=== PATIENT | male | born 1965 | race Caucasian/White ===

== ENCOUNTER 2018-01-05 10:39 | Emergency (ER) | payer OTHER ==
[~2018-01-05] VITALS: Ht 185.4 cm; Wt 77.1 kg
[~2018-01-05 10:39] MED LIST: IBUPROFEN200 M1 PO; QUETIAPINE FUMA50 MG PO; TYLENOL325 MG PO; VICODIN 5-3001 EACH PO
[2018-01-05] MEDS ORDERED: LAMOTRIGINE100 MG PO (11:07)
[2018-01-05] MEDS ORDERED: ULTRAM50 MG PO (11:07)
[2018-01-05] MEDS ORDERED: NORCO 5-325 TA1 EACH PO (11:26)
== END 2018-01-05 11:37 | disposition home or self-care (01) ==
LOC: ED 10:39
DX: S05.02XA Injury of conjunctiva and corneal abrasion without foreign body, left eye, initial encounter (principal); Z79.899 Other long term (current) drug therapy; F17.200 Nicotine dependence, unspecified, uncomplicated; X58.XXXA Exposure to other specified factors, initial encounter
CPT/HCPCS: 99283

== ENCOUNTER 2018-02-02 12:28 | Emergency (ER) | payer OTHER ==
[~2018-02-02] VITALS: Ht 185.4 cm; Wt 77.1 kg
[~2018-02-02 12:28] MED LIST changes: +LAMOTRIGINE100 MG PO; +NORCO 5-325 TA1 EACH PO; +ULTRAM50 MG PO
[2018-02-02] MEDS ORDERED: LAMICTAL100 MG PO (12:48)
[2018-02-02] MEDS ORDERED: NEURONTIN300 MG PO (13:03)
== END 2018-02-02 13:10 | disposition home or self-care (01) ==
LOC: ED 12:28
DX: M54.5 Low back pain (principal); G89.29 Other chronic pain; F31.9 Bipolar disorder, unspecified; F17.200 Nicotine dependence, unspecified, uncomplicated; Z79.899 Other long term (current) drug therapy
CPT/HCPCS: 99283

== ENCOUNTER 2019-07-04 18:45 | Emergency (ER) | payer OTHER ==
[~2019-07-04] VITALS: Ht 185.4 cm; Wt 77.1 kg
[~2019-07-04 18:45] MED LIST changes: +LAMICTAL100 MG PO; +NEURONTIN300 MG PO
[2019-07-04] MEDS ORDERED: TRAMADOL HCL50 MG PO (20:19)
[2019-07-04] MEDS ORDERED: MEDROL4 M1 PO (20:19)
[2019-07-04] MEDS ORDERED: CYCLOBENZAPRINE10 MG PO (20:19)
== END 2019-07-04 20:34 | disposition home or self-care (01) ==
LOC: ED 18:45
DX: G89.29 Other chronic pain (principal); M54.5 Low back pain; M79.604 Pain in right leg; F17.200 Nicotine dependence, unspecified, uncomplicated
CPT/HCPCS: 99283

== ENCOUNTER 2020-09-17 07:07 | Day surgery (SDC) | payer OTHER ==
[~2020-09-17] VITALS: Ht 182.9 cm; Wt 90.0 kg
[~2020-09-17 07:07] MED LIST changes: +CYCLOBENZAPRINE10 MG PO; +DEPAKOTE250 MG PO; +GABAPENTIN300 MG PO; +GABAPENTIN600 MG PO; +LAMOTRIGINE200 MG PO; +LIPITOR20 MG; +LISINOPRIL10 MG PO; +MEDROL4 M1 PO; +MOBIC15 MG PO; +TRAMADOL HCL50 MG PO; +VIT D-2 PO; +VITAMIN B-2100 MG PO
--- NOTE | 2020-09-17 08:52 | NUR ---
09/17/20 0852 Laura Murray 0889 PATIENT ARRIVES TO PACU UNRESPONSIVE TO PAIN. RESP EVEN AND UNLABORED, MASK AT 6 LITERS.
--- NOTE | 2020-09-17 10:04 | NUR ---
PT ALERT, ORIENTED AND HERE FOR FIRST SCOPE. PT ADMITTED ANXIETY OVER SCOPE- REALLY DID NOT WANT ONE. FOR HIM, NO NEWS IS BEST WITH RECENT EXPERIENCES HE HAS ENCOUNTERED WITH FRIENDS. GAVE ENCOURAGEMENT,DEBRIEFED PT, SAID HE HAS BEEN IN [facility] ALREADY THIS AM. GAVE BLESSING, WILL FOLLOW
--- NOTE | 2020-09-21 08:00 | OR ---
[facility] [place] [facility] [address] [place], [place] [address] Signed DATE OF OPERATION: 09/17/2020 SURGEON: Nicolas Faust MD PREOPERATIVE DIAGNOSIS: Screening. POSTOPERATIVE DIAGNOSES: 1. Cecal mass. 2. 8 mm polyp at 75 cm (snare/tattoo). 3. 5 mm polyp at 62 cm. 4. 6 mm polyp at 58 cm (snare/hot biopsy). 5. 4 mm polyps x2 at 18 cm (rectosigmoid junction/proximal rectum). 6. Flwklro-zg-hhtvklzj internal and external hemorrhoids. 7. Minimal left-sided diverticulosis. PROCEDURES: Colonoscopy, snare polypectomy, hot biopsy, and injection of tattoo. ESTIMATED BLOOD LOSS: Minimal. INDICATIONS: Barby is a 54-year-old gentleman, asked to see me for his initial colonoscopy. He explained that his ex-girlfriend actually of colon cancer. He has no current lower GI complaints. There is no family history of colon cancer or polyps. I had met with Barby in the office and gave him a pamphlet on colonoscopy. He understands the nature of the test along with the risks including, but not limited to gas bloating, crampy abdominal pain, bleeding, perforation requiring surgery, and missed diagnosis. He also understands the need for IV conscious sedation. Given his past medical history and his daily need for pain medications, we did ask an anesthesia provider to help us with increased monitoring sedation with propofol. He had expressed understanding and wished to proceed. PROCEDURE IN DETAIL: Reagan was taken in the endoscopy suite and placed in the left lateral decubitus position. He was given IV sedation with propofol per our nurse event specialist. A digital rectal exam was performed. He does have moderate circumferential external hemorrhoids. He had good sphincter tone. Prostate is a bit indurated, moderately enlarged in the left-sided certainly more prominent than the right. He probably should review that with Electronically Signed By: NICOLAS FAUST MD 09/21/20 0800 PATIENT NAME: BARBY MATTA OPERATIVE REPORT DATE OF : 63 REPORT #: [id number] PHYSICIAN: NICOLAS FAUST MD PCP: NANCIE ROBLES MD REPORT IS CONFIDENTIAL AND NOT TO BE RELEASED WITHOUT AUTHORIZATION [facility] [address] [place], [place] [address] Signed his primary care provider. The adult colonoscope had been introduced and advanced all around into the cecum under direct visualization of the camera. It took minimal abdominal compression in order to move the scope into the cecum itself. His prep was quite excellent. We could easily see his appendiceal orifice and the ileocecal valve. We had taken pictures throughout for photodocumentation. He has a multilobulated cecal mass just to the side of the appendiceal orifice. It was too broad and too extensive or remove safely with our snare. Consequently, we took several biopsies of this mass. More than likely, this will require right colectomy. The scope was then slowly withdrawn and we used our snare to remove the polyp at 75 cm. We took 2 additional biopsies at the base and then placed a tattoo at that location. We took another polyp off at 62 cm and then at 58 cm, we took a biopsy of the base of the polyp with hot biopsy forceps and then removed the rest with our snare and it looks like we got it in our trap. I then back it 18 cm right around the rectosigmoid junction and over the proximal rectum. We took out 2 small polyps with the hot biopsy forceps. We also noticed up in the left colon that he had a few diverticula. They were small in size, few in number, and scattered about. The rectum itself was unremarkable. Upon retroflexion of scope, he has minimal internal hemorrhoid tissue as well. After this, the gas was suctioned out and the colonoscope was removed. Reagan tolerated the procedure quite well. RECOMMENDATIONS: I will see Reagan back in my office in 7 to 14 days to review his results. He might review his prostate exam with his primary care provider. It looks like he is headed for a right colectomy. Nicolas Faust MD ALB/MODL /[id number] cc: MD Nancie Corcoran MD Copies: NICOLAS FAUST MD Electronically Signed By: NICOLAS FAUST MD 09/21/20 0800 PATIENT NAME: BARBY MATTA OPERATIVE REPORT DATE OF : 63 REPORT #: [id number] PHYSICIAN: NICOLAS FAUST MD PCP: NANCIE ROBLES MD REPORT IS CONFIDENTIAL AND NOT TO BE RELEASED WITHOUT AUTHORIZATION [address] [address] Signed ~ Electronically Signed By: NICOLAS FAUST MD 09/21/20 0800 PATIENT NAME: BARBY MATTA OPERATIVE REPORT DATE OF : 63 REPORT #: [id number] PHYSICIAN: NICOLAS FAUST MD PCP: NANCIE ROBLES MD REPORT IS CONFIDENTIAL AND NOT TO BE RELEASED WITHOUT AUTHORIZATION
--- NOTE | 2020-09-21 13:39 | PATH ---
[facility] [address], [place] [address] Signed SPECIMEN(S): A RECTAL POLYP AT 18 CM SPECIMEN(S): B COLON POLYP AT 75 CM SPECIMEN(S): C CECAL POLYP SPECIMEN(S): D COLON POLYP AT 62 CM SPECIMEN(S): E COLON POLYP AT 58 CM SPECIMEN SOURCE: A. RECTAL POLYP AT 18 CM B. COLON POLYP AT 75 CM C. CECAL POLYP D. COLON POLYP AT 62 CM E. COLON POLYP AT 58 CM CLINICAL HISTORY: Screening colonoscopy. Cecal CA. MICROSCOPIC DESCRIPTION: Histologic sections of all submitted blocks are examined by light microscopy. These findings, together with the gross examination, support the pathologic diagnosis. FINAL PATHOLOGIC DIAGNOSIS: A. Rectal polyp at 18 cm, biopsy: - Tubular adenoma (one fragment). B. Colon polyp at 75 cm, biopsy: - Tubular adenoma (one fragment). C. Cecal polyp, biopsy: - Tubular adenoma (three fragments). D. Colon polyp at 62 cm, biopsy: - Tubular adenoma (one fragment). E. Colon polyp at 58 cm, biopsy: - Tubular adenoma (one fragment). JVR:cml:[id number] GROSS DESCRIPTION: Five specimens are received in five containers, labeled "DB." A. The specimen, labeled "DB, 1," and designated on the requisition "ascending polyp," is received in formalin and consists of one carrillo soft tissue fragment with vegetative matter that measures 0.3 cm in greatest dimension. The specimen is entirely submitted in cassette (A1). B. The specimen, labeled "DB, 2," and designated on the requisition "cecum polyp," is received in formalin and consists of one carrillo soft tissue fragment PATIENT NAME: BARBY MATTA PATHOLOGY DATE OF : 63 REPORT #: [id number] PHYSICIAN: CÉSAR RIVERA PCP: LENNY ROBLES MD REPORT IS CONFIDENTIAL AND NOT TO BE RELEASED WITHOUT AUTHORIZATION [facility] [address] [place], [place] [address] Signed that measures 0.7 cm in greatest dimension. The specimen is inked black, bisected, and entirely submitted in cassette (B1). C. The specimen, labeled "DB, 3," and designated on the requisition "descending polyp," is received in formalin and consists of two carrillo soft tissue fragments that measure 0.3 cm in greatest dimension. The specimen is entirely submitted in cassette (C1). D. The specimen, labeled "DB, 4," and designated on the requisition "sigmoid polyps x 2," is received in formalin and consists of four carrillo soft tissue fragments that measure 0.4 cm in greatest dimension. The specimen is entirely submitted in cassette (D1). E. The specimen, labeled "DB, 5," and designated on the requisition "sigmoid polyp," is received in formalin and consists of one carrillo soft tissue fragment that measures 0.4 cm in greatest dimension. The specimen is entirely submitted in cassette (E1). AT (under the direct supervision of a pathologist) The Gross Description was prepared using a voice recognition system. The report was reviewed for accuracy; however, sound-alike word errors, addition and/or deletions may occur. If there is any question about this report, please contact Client Services. PERFORMING LABORATORY: The technical component was performed by [employer], [address] [place] [id number] (Communication Equipment Mechanic: Alicia Rodriguez MD; CLIA# [id number]). Professional interpretation was performed by [facility], [facility], [address] [place] [address], [place] [address] (Communication Equipment Mechanic: Romain Frausto M.D.). Diagnostician: Romain Frausto MD Pathologist Electronically Signed 09/21/2020 Copies: ~ PATIENT NAME: BARBY MATTA PATHOLOGY DATE OF : 63 REPORT #: [id number] PHYSICIAN: CÉSAR PATHOLOGY PCP: LENNY ROBLES MD REPORT IS CONFIDENTIAL AND NOT TO BE RELEASED WITHOUT AUTHORIZATION
== END 2020-09-17 09:25 | disposition home or self-care (01) ==
LOC: DS 07:07 → OPS 07:07 → DS 07:08 → OPS 07:45
PROVIDERS: ATTEND Colon & Rectal Surgery
PROC: 0DBN8ZX Excision of Sigmoid Colon, Via Natural or Artificial Opening Endoscopic, Diagnostic (ICD-10-PCS; 2020-09-17)
PROC: 0DBP8ZX Excision of Rectum, Via Natural or Artificial Opening Endoscopic, Diagnostic (ICD-10-PCS; 2020-09-17)
PROC: 0DBM8ZX Excision of Descending Colon, Via Natural or Artificial Opening Endoscopic, Diagnostic (ICD-10-PCS; 2020-09-17)
PROC: 0DBH8ZX Excision of Cecum, Via Natural or Artificial Opening Endoscopic, Diagnostic (ICD-10-PCS; 2020-09-17)
PROC: 0DBK8ZX Excision of Ascending Colon, Via Natural or Artificial Opening Endoscopic, Diagnostic (ICD-10-PCS; principal; 2020-09-17 08:15)
DX: Z12.11 Encounter for screening for malignant neoplasm of colon (principal); D12.8 Benign neoplasm of rectum; D12.2 Benign neoplasm of ascending colon; D12.0 Benign neoplasm of cecum; D12.4 Benign neoplasm of descending colon; D12.5 Benign neoplasm of sigmoid colon; K64.8 Other hemorrhoids; K64.4 Residual hemorrhoidal skin tags; K57.30 Diverticulosis of large intestine without perforation or abscess without bleeding; N42.89 Other specified disorders of prostate; I10 Essential (primary) hypertension; E78.5 Hyperlipidemia, unspecified; F31.9 Bipolar disorder, unspecified; R73.01 Impaired fasting glucose; F17.210 Nicotine dependence, cigarettes, uncomplicated; Z79.1 Long term (current) use of non-steroidal anti-inflammatories (NSAID); Z79.899 Other long term (current) drug therapy
CPT/HCPCS: J2704; J7121

== ENCOUNTER 2020-11-04 14:25 | Inpatient (IN) | payer OTHER ==
[~2020-11-04] VITALS: Ht 182.9 cm; Wt 92.7 kg
[~2020-11-04 14:25] MED LIST changes: -LIPITOR20 MG; +LIPITOR20 MG PO
[2020-11-10] MEDS ORDERED: FLONASE ALLERG9.9 ML NAS (09:24)
[2020-11-10] MEDS ORDERED: HYDROCHLOROTHIA25 MG PO (09:30)
--- NOTE | 2020-11-10 15:26 | NUR ---
11/10/20 Lizeth6 Evelin Steven PATIENT IS ATTEMPTING TO COUGH. MIDLINE ABDOMINAL INCISION IS APPLIED PRESSURE BY ME. PATIENT TOLERATES THAT WELL.
--- NOTE | 2020-11-10 16:35 | NUR ---
New admit to the floor. Patient arrived to unit alert and oriented x4. Abdomial incision covered with surgical dressing. Patient reports tolerable pain level. Vital signs are stable. Water and jello provided to patient. IV fluids infusing without difficulty. Call light within reach. No needs at this time.
--- NOTE | 2020-11-10 17:01 | NUR ---
P[place] Santiago 5/325mg po and gabbapentin 600mg po admin for reports of 6/10 abd pain.
--- NOTE | 2020-11-10 17:08 | NUR ---
Dilaudid 1mg ivp admin for reports of 9/10 abd pain.
--- NOTE | 2020-11-10 17:10 | NUR ---
Patient reports 9/10 uncontrolled abd pain. Recent admin of dilaudid. Pt's vs are stable, afebrile. Abdominal incision remains unchanged; CDI. IV infusing without difficulty. Patient has no needs. Personal supplies and call light within reach.
--- NOTE | 2020-11-10 18:17 | NUR ---
THIS RN IN PTS ROOM TO CHECK PT FOR POST OPP CHECK. PT STATES THAT PAIN IS 3/10 AND IS TOLERABLE. PTS INSICION IS CLEAN/DRY/INTACT WITH LIMITED SHADOWING AROUND THE BELLY BUTTON. PT ALERT AND ORIENTED.
--- NOTE | 2020-11-10 19:00 | NUR ---
REPORT RECEIVED FROM XAVIER PATRICIA. PT RESTING IN BED, ALERT AND ORIENTED, IVF INFUSING WNL. PT REPORTS PAIN 4/10 AT THIS TIME, MADE PLAN WITH PT FOR PRN MEDICATIONS WHEN AVAILABLE. PT DUE TO VOID, EDUCATED PROBATION AND PATROL AGENT LIGHT USAGE. SCDS IN PLACE, CALL LIGHT IN REACH, WILL CONT TO MONITOR
--- NOTE | 2020-11-10 19:06 | NUR ---
THIS RN IN PTS ROOM TO DO POST OPP CHECK. PT STATES THAT PAIN IS 3.5/10. PT TOLERATING PAIN OKAY AND DENIES NEED FOR PAIN MEDS. PT ALERT AND ORIENTED.
--- NOTE | 2020-11-10 19:11 | NUR ---
THIS RN IN PTS ROOM TO DO POST OPP CHECK. PT APPEARS TO BE RESTING COMFORTABLY AT THIS TIME WITH RESPIRATIONS NOTED AND PT IS ON CPOX.
--- NOTE | 2020-11-10 20:11 | NUR ---
Scheduled medications administered. Pt resting in bed, alert and oriented. Pt states not all medications he takes at home are being given here yet, this RN discussed med list with patient. Pt up to BR to void, 300 ml out, states pain with urination. Pt requests to walk in hallway, 1 lap complete, steady gait, pt bracing abdomen. IVF infusing WNL, VSS, CPOX in place SPO2 @ 94% on RA. SCDs in place. Once back in bed, pt requests PRN pain medication for sudden 8/10 abdominal pain, see JAN. Midline incision covered w gauze, C/D/I. Water refreshed, warm blanket given, ice pack provided. Call light in reach.
--- NOTE | 2020-11-10 20:56 | NUR ---
REASSESSED PT PAIN, STATES IS NOW 3/10 AND IS TOLERABLE AND COMFORTABLE. PT RESTING IN BED, ICE PACK OVER ABDOMEN, PT DEMONSTRATING KNOWLEDGE ABOUT BRACING WHEN COUGHING, DEEP BREATHS ETC. STATES NO OTHER NEEDS AT THIS TIME. CALL LIGHT IN REACH, WILL CONT TO MONITOR
--- NOTE | 2020-11-10 21:58 | NUR ---
CALL LIGHT ANSWERED, PT REQUESTS WATER REFILLED, CELL PHONE PLUGGED IN, ASKS AGAIN ABOUT HOME MEDICATIONS, DISCUSSED PLAN OF CARE AND MEDS WITH PATIENT. NO OTHER REQUESTS AT THIS TIME, CALL LIGHT IN REACH.
--- NOTE | 2020-11-10 22:15 | NUR ---
ANSWERED CALL LIGHT. 1P STANDBY TO THE BATHROOM. REPOSITIONED PT IN BED.
--- NOTE | 2020-11-11 | NUR ---
Rounded on patient, resting in bed with eyes closed. SPO2 91% on room air. IVF infusing WNL. Call light in reach, no other needs at this time.
--- NOTE | 2020-11-11 00:57 | NUR ---
Call light answered, pt requests to use bathroom and PRN medications, administered. IVF infusing WNL. Water refreshed. Call light in reach, no other needs at this time.
--- NOTE | 2020-11-11 02:20 | NUR ---
IN ROOM FOR VITALS, ASSESSMENT. BELEM RUSSELL IN ROOM TO ASSIST. PT AMBULATED TO BR, SPLINTING ABDOMEN WITH COUGHING AND MOVEMENT. STEADY GAIT. IVF INFUSING WNL. ON ROOM AIR. MIDLINE INCISION COVERED WITH GAUZE, C/D/I. ICE PACK REFRESHED. CALL LIGHT IN REACH, NO OTHER REQUESTS AT THIS TIME
--- NOTE | 2020-11-11 02:22 | NUR ---
IN ROOM TO ASSIST PRIMARY RN WITH VS. pt 1PA TO GET OUT OF BED, C/O BACK AND ABDOMINAL PAIN WITH MOVEMENT IN AND OUT OF BED, GUARDED. pt AMBULATED TO RESTROOM AND BACK TO BED. SCDS ON. PRIMARY RN IN ROOM.
--- NOTE | 2020-11-11 04:43 | NUR ---
ANSWERED CALL LIGHT. 1P STANDBY TO THE BATHROOM. SUDDEN PAIN ON ABDOMEN 06/28. VERIFIED WITH PRIMARY RN TO ADMINISTER PRN MEDS. REPOSITIONED PT IN BED. ICE PACK GIVEN. EDUCATED PT ON HOW LONG THE MED WILL HAVE EFFECT. PT VERBALIZED UNDERSTANDING.
--- NOTE | 2020-11-11 05:25 | NUR ---
VITALS AND I/O'S COMPLETE, PT ALERT AND ORIENTED, AWAKE IN BED, STATES "HAVING PAIN" BUT DECLINES PAIN MEDICATION AT THIS TIME, STATES WILL USE CALL LIGHT WHEN WANTING MEDS. IVF INFUSING WNL, CALL LIGHT IN REACH, LAB IN ROOM.
--- NOTE | 2020-11-11 06:37 | NUR ---
CALL LIGHT ANSWERED, PT REQUESTS PRN MEDICATION FOR 10/10 PAIN. IV DILAUDID ADMINISTERED. PT TEARFUL AND SHAKING, QUICKLY RESOLVES WITH VERBAL REASSURANCE AND SENIOR ORACLE PL SQL DEVELOPER. IVF INFUSING WNL, A+0, VSS. ROOM TIDIED, NO OTHER NEEDS AT THIS TIME.
--- NOTE | 2020-11-11 06:57 | OR ---
[facility] [address], [place] [address] Signed DATE OF OPERATION: 11/10/2020 SURGEON: Nicolas Faust MD PREOPERATIVE DIAGNOSIS: Sessile cecal mass. POSTOPERATIVE DIAGNOSIS: Sessile circular cecal mass (2.5-3.0 cm). PROCEDURE: Right colectomy with stapled tzoz-pi-tusy anastomosis. ESTIMATED BLOOD LOSS: Minimal. INDICATIONS: Reagan is a 55-year-old gentleman asked to see me for his colonoscopy. We had taken out several adenomatous polyps throughout the colon and rectum. He also has minimal internal and external hemorrhoids. He is known to have left-sided diverticulosis. We could see a sessile serpiginous lesion in the cecum. It was simply too large to remove with the endoscope without perforating the colon. We took several cold biopsies of that lesion and they came back adenomatous as well. Reagan had came back to the office and I reviewed all this with him in detail including the surgical photos and the pathology report. I gave him a brochure on colorectal polyps and cancer. I explained to him the location of this lesion and the requirement for a standard right colectomy. In the end, this may remain a benign lesion, but it could end up having cancer. In that regard, I explained to Reagan we had to do a formal right colectomy and treat it like cancer. He understands the nature of that surgery along with its expected intraop and postop course. We did review the risks including, but not limited to bleeding, infection, scarring, change in contour of the skin, damage to bowel, anastomotic leak, incisional hernias and other unforeseen comorbidities. He had expressed understanding and wished to proceed. DESCRIPTION OF PROCEDURE: I met with Reagan in the preop area and answered his questions. After that, we took Reagan into the operating room and placed him in supine position under general endotracheal tube anesthesia. He was given preoperative antibiotics along with subcutaneous heparin. SCDs were utilized. He was then prepped and draped in the usual sterile fashion. We noticed that he had a broad fascial defect at the umbilicus. We Electronically Signed By: NICOLAS FAUST MD 11/11/20 0657 PATIENT NAME: BARBY MATTA OPERATIVE REPORT DATE OF : 63 REPORT #: [id number] PHYSICIAN: NICOLAS FAUST MD PCP: NANCIE HOSKINS MD REPORT IS CONFIDENTIAL AND NOT TO BE RELEASED WITHOUT AUTHORIZATION [facility] [address] [place] [id number] Signed utilized a standard periumbilical midline incision and carried that in the abdomen bluntly with the help of the cautery. Initially, I could not feel the lesion in the cecum. We placed the Bookwalter retractor and then elevated the right colon along the white line of Toldt and around the hepatic flexure over to the head of the pancreas. This allowed the entire right colon to come up and out of the abdomen along with the terminal ileum. We could palpate the lesion in the cecum. It felt to be 2.5-3 cm in diameter. We then divided the transverse colon with the linear stapler along with the terminal ileum. The mesentery was taken down between Pean clamps and 0 Vicryl ties in standard fashion. The entire specimen had been passed off the field. We had our circulating nurse open that on the back table as usual. One could easily see this lesion in the base of the cecum. We had taken pictures for photodocumentation. It is quite clear this would never be amenable to endoscopic resection. After this, we brought the small bowel in the proximal transverse colon together in a [id number] fashion with interrupted 3-0 silk sutures. We opened the corners of the bowel and inserted the 75 mm linear stapler for the anastomosis. We checked the staple line and had good hemostasis. We then divided the end of the small bowel and the colon with the help of TA60 stapler. We then oversewed the anterior staple line with several interrupted silk Lembert sutures. This gave a widely palpably patent anastomosis. We then closed the mesenteric rent with a running 0 Vicryl suture. The wound was irrigated and suctioned out until clear. The bowel was returned to its position and all counts were correct. We then closed the midline fascia with interrupted sagtli-vh-cbndy #1 PDS suture. Local anesthetic was injected into his abdominal wall. We irrigated the wound until clear. We closed the dermis with interrupted 3-0 Vicryl subcuticular stitches. The skin was reapproximated with mile. After this, our nurse wood products manufacturer placed a TAP block with ultrasound guidance. Dry gauze and tape were then applied to the incision. His Eddy catheter was removed without difficulty. Reagan was awakened from his anesthesia, extubated in the OR, and taken to recovery room in stable condition. Nicolas Faust MD ALB/MODL /[id number] cc: Nancie Hoskins MD Electronically Signed By: NICOLAS FAUST MD 11/11/20 0657 PATIENT NAME: BARBY MATTA OPERATIVE REPORT DATE OF : 63 REPORT #: [id number] PHYSICIAN: NICOLAS FAUST MD PCP: NANCIE HOSKINS MD REPORT IS CONFIDENTIAL AND NOT TO BE RELEASED WITHOUT AUTHORIZATION [address] [address] Signed Copies: ~ Electronically Signed By: NICOLAS FAUST MD 11/11/20 0657 PATIENT NAME: BARBY MATTA OPERATIVE REPORT DATE OF : 63 REPORT #: [id number] PHYSICIAN: NICOLAS FAUST MD PCP: NANCIE HOSKINS MD REPORT IS CONFIDENTIAL AND NOT TO BE RELEASED WITHOUT AUTHORIZATION
--- NOTE | 2020-11-11 07:19 | NUR ---
REPORT RECIEVED FROM BELEM DUMONT. PT RESTING IN BED. PT REPORTS 5/10 PAIN STATING "I'M A CHEERFUL SUMAN WHEN THE PAIN IS IN CONTROL." PT DENIES NEED FOR ADDITIONAL PAIN MEDICATION AT THIS TIME. MIDLINE DRESSIG INTACT WITH 3CM X 3CM SHADOWING NOTED NEAR DISTAL END OF DRESSING, JULIA STATES THIS SHADOWING IS OLD AND HAS NOT CHANGED SINCE LAST NIGHT. ICE PACK IN PLACE. PT DENIES NAUSEA AND REQUESTS ADDITIONAL FOOD OTHER THAN CLEAR LIQUIDS. UPDATED ON PT CONDITION AND COMES TO ROOM FOR ROUNDS. NEW ORDERS PLACED. PT DENIES ADDITIONAL REQUESTS OR COMPLAINTS AT THIS TIME. CALL LIGHT WITHIN REACH.
--- NOTE | 2020-11-11 08:30 | NUR ---
To room for med pass. Pt reports 10/10 pain with "shaking", visible in his hands. Pt given PRN norco tabs as ordered. Pt able to take med without difficulty. Pt up to the chair. Pt denies nausea and dizziness with movement. Pt in chair, table and call light within reach.
--- NOTE | 2020-11-11 08:33 | NUR ---
MORNING ASSESSMENT AND MEDICATION DUE. PT UP TO CHAIR. PT REPORTS 6/10 SHARP PAIN AT SURGICAL SITE AND UP TO RIGHT SHOULDER. PT ENCORUAGED TO AMBULATE. PT DECLINES AT THIS TIME. DRESSING REMOVED BY MD, SEAN REMAIN IN PLACE ON MID LINE INCISION, EDGES WELL APROXIMATED, NO DRAINAGE NOTED. NEW GOWN PROVIDED. BOWEL TONES ACTIVE. PT DENIES NAUSEA. PT REMAINS UP TO CHAIR AND STATES HE PLANS TO WALK "LATER" AND SHOWER THIS AFTERNOON. PT ASKS ABOUT A GROWTH ON THE BACK OF RIGHT ARM. PT ENCOURAGED TO FOLLOW UP WITH HIS PRIMARY CARE DOCTOR. MEDICATION GIVEN. NO ADDITIONAL REQUESTS OR COMPLAINTS AT THIS TIME. CALL LIGHT WITHIN REACH. FRESH ICE PACK PROVIDED.
--- NOTE | 2020-11-11 10:01 | NUR ---
SPOKE WITH PATIENT IN ROOM. HE IS UP IN CHAIR WITH CELE CARDONA BREAKFAST TRAAdam. PATIENT LIVES IN HOME WITH HIS DAD. HE IS DISABLED. DRIVES. HE HAS A WALKER TO USE AT HOME BUT DOESN'T USE DAILY. DOES NOT HAVE STAIRS. HE HAS A RIDE HOME, JUST NEEDS TO CALL THEM WHEN HE IS DISCHARGED. HE DENIES WORRY WITH AFFORDING MEDS, FOOD OR UTILITIES. HE STATES HE GETS SNAP BENEFITS, SHARES UTILITIES WITH FAMILY, MEDS ARE COVERED 100% AND LIVES IN LOW INCOME HOUSING AT REDUCED COST. HE FEELS SAFE TO RETURN HOME AT DISCHARGE AND DOES NOT THINK HE NEEDS ANYTHING TO DO SO. CM WILL CONTINUE TO FOLLOW NEEDED.
--- NOTE | 2020-11-11 10:25 | NUR ---
THIS RN RESPONDING TO PTS CALL LIGHT. 1 PERSON STAND BY ASSIST UP TO RESTROOM. PT REPORTS 5/10 PAIN WHEN RESTING AND 9/10 WHEN AMBULATING OR UP TO RESTROOM. PT STATES THE PAIN IS "MUCH BETTER THAN LAST NIGHT!" PT BACK TO CHAIR. WARM BLANKET PROVIDED. LINENS CHANGED. MORNING CARES DONE. PT ASSISTED WITH PLACING LUNCH ORDER, FULL LIQUIDS ORDERED. PT DENIES ADDITIONAL REQUESTS OR COMPLAINTS AT THIS TIME. CALL LIGHT WITHIN REACH.
--- NOTE | 2020-11-11 11:10 | NUR ---
THIS RN TO ROOM TO CHECK ON PT. PT REPORTS HE IS READY TO WALK IN THE [place]. PT AMBULATES IN [place] WITH STAND BY ASSIST FROM THIS RN. PT RPEORTS 8/10 SHARP PAIN IN ABDOMEN AT TIMES DURING AMBULATION THAT GOES DOWN TO 5/10. PT UP TO RESTROOM WITH STAND BY ASSIST. VOIDS CLEAR YELLOW URINE WITHOUT ISSUE. PT UP TO CHAIR. NO ADDITIONALR EQUESTS OR COMPLAINTS. PT DECLINES ICE PACK. CALL LIGHT WIHTIN REACH.
--- NOTE | 2020-11-11 11:14 | NUR ---
PT ALERT, ORIENTED AND SITTING IN CHAIR ENJOYING THE VIEW. PT SEEMS TO HAVE A GOOD ATTITUDE, DIDN'T SLEEP WELL THOUGH. PT IS VERY PLEASED WITH CARE HE IS RECEIVING, NO NEEDS AT THE MOMENT. LEFT A G.POST, BLESSING AND WILL FOLLOW
--- NOTE | 2020-11-11 12:10 | NUR ---
GOT PATIENT A CUP OF COFFEE AND ALSO APPLE JUICE. PATIENT IS SITTING UP IN HIS CHAIR.
--- NOTE | 2020-11-11 12:24 | NUR ---
PATIENT ALSO ORDERED HIS LUNCH AND DINNER.
--- NOTE | 2020-11-11 12:41 | NUR ---
SITTING UP IN RECLINER. REQUESTS PAIN MEDICATION, SEE EMAR. STATES HE FEELS RECOVERY FROM THIS SURGERY IS EASIEST HE HAS HAD COMPARED TO PREVIOUS SURGERIES. DENIES OTHER NEEDS AT THIS TIME. CALL LIGHT IN REACH.
--- NOTE | 2020-11-11 14:00 | NUR ---
AFTERNOON ASSESSMENT DUE. PT UP TO CHAIR. PT REPORTS IV IS PAINFUL. IV ASSESSED, PAIN CONTINUES WITH FLUSH. NEW IV STARTED IN LEFT UPPER FORARM PER PROTOCOL. PT TOLERATED WELL. BRISK BLOOD RETURN NOTED. IV IN LEFT HAND DC'D PER PROTOCOL. GAUZE AND COBAN APPLIED. ASSESSMENT DONE. LUNG SOUNDS CLEAR. ABDOMINAL INCISION C/D/I WITH NO DRAINAGE NOTED. EDGES WELL APROXIMATED. PT UP TO AMBULATE X1 LAP IN VAUGHN WITH STAND BY ASSIST. PT STEADY ON FEET BUT STATES "I CAN'T STAND UP STRAIGHT YET." PT REPORTS 8/10 ACHING PAIN WITH AMBULATION AND WITH USING RESTROOM. PT VOIDS 450ML OF CLEAR YELLOW URINE. PT BACK TO CHAIR. PT REPORTS PAIN DULLS TO 5/10 WITH REST. NEW ICE PACK PROVIDED. BEEF BROTH PROVIDED PER PT REQUEST. PT DENIES ADDITIONAL REQUESTS OR COMPLAINTS. CALL LIGHT WITHIN REACH. SUPERVISOR SHUTTLE FITTING AT BEDSIDE WITH PT.
--- NOTE | 2020-11-11 15:27 | NUR ---
THIS RN TO ROOM TO CHECK ON PT. PT REPORTS HE IS HAVING 8/10 SHARP ABDOMINAL PAIN, THAT HE WOULD LIKE PAIN MEDICATION AND WILL TAKE A SHOWER. SEE MAR FOR MEDICATION GIVEN. IV SALINE LOCKED. IV COVERED FOR SHOWER. DARCIE SHAFFER TO BEDSIDE TO ASSIT PT WITH SHOWER. NO ADDITIONAL REQUESTS OR COMPLAINTS. CALL LIGHT WITHIN REACH.
--- NOTE | 2020-11-11 16:44 | NUR ---
THIS RN TO ROOM TO CHECK ON PT. PT FINISHED WITH SHOWER AND UP TO CHAIR. PT REPORTS 7/10 ACHING PAIN IN ABDOMEN. SEE MAR FOR MEDICATION GIVEN. PT REPORTS CONCERN OVER SEAN IN HIS ABDOMEN. ABDOMINAL INCISION ASESSED, EDGES WELL APROXIMATED, NO DRAINAGE NOTED. PT STATES "ITS A LITTLE DARK BY MY BELLY BUTTON." PT ENCOURAGED THAT INCISION IS WNL AT THIS TIME. PT DENIES ADDITIONAL REQUESTS OR COMPLAINTS AT THIS TIME. PT WATCHING TV. CALL LIGHT WITHIN REACH.
--- NOTE | 2020-11-11 17:13 | NUR ---
PT CALL LIGHT ON. PT REPORTS HE WOULD LIKE TO GET BACK TO BED HE IS "TOO TIRED TO EAT. I'LL EAT LATER." STAND BY ASSIT UP TO RESTROOM. PT VOIDS CLEAR YELLOW URINE WITHOUT ISSUE. STAND BY ASSIST BACK TO BED. WARM BLANKETS PROVIDED. PT DENIES ADDITIONAL REQUESTS OR COMPLAINTS. CALL LIGHT WIHTIN REACH. BED RAILS UP.
--- NOTE | 2020-11-11 17:25 | NUR ---
PT POST OP DAY 1 AFTER RIGHT COLECTOMY. PT ADVANCED TO FULL LIQUID DIET, TOLERATING WELL, NO NAUSEA THIS SHIFT. STAND BY ASSIST UP TO CHAIR AND UP TO AMBULATE IN VAUGHN X2 THIS SHIFT, TOLERATING WELL. PT REPORTS 5-8/10 PAIN MANAGED WITH PRN NORCO (SEE MAR). SHOWER THIS SHIFT WITH ONE DOSE OF IV DILAUDID TO ASSIST WITH BREAK THROUGH PAIN. IV FLUIDS DECREASED TO 75ML/HR THIS SHIFT. NICOTENE PATCH IN PLACE. NEW IV PLACED PER PROTOCOL TO RIGHT AC THIS SHIFT. PT VOIDING QUANITY SUFFIENT. PT USES CALL LIGHT APPORPRIATLY.
--- NOTE | 2020-11-11 17:58 | NUR ---
THIS RN TO ROOM TO CHECK ON PT. PT RESTING WITH EYES CLOSED. PT AWAKENS TO MOVEMENT IN ROOM. PT REPORTS 6/10 PAIN THAT IS "IRRITATING." FRESH ICE PACK PROVIDED. PT ENCOURAGED TO CONTINUE RESTING. RADIATION TECHNICIAN TO BEDSIDE FOR VITALS AND I/Os. PT DENIES ADDITIONAL REQUESTS OR COMPLAINTS AT THIS TIME. CALL LIGHT WITHIN REACH. BED RAILS UP.
--- NOTE | 2020-11-11 18:38 | NUR ---
PT CALL LIGHT ON. PT REQUESTS ASSISTANCE UP TO RESTROOM. THIS RN ARRIVES TO ROOM. PT STATES "WHEN I SAY THE PAIN IS AN IRRITATING 6 IT IS MORE THAT I'M JUST IRRITATED." PT STATES "I NEED TO PASS GAS." STAND BY ASSIST UP TO RESTROOM. PT DOING PURSED LIP BREATHING, RR OF 32 AND SHAKING WITH PAIN. PT REPORTS 9/10 PAIN. SMALL AMBOUNT OF RED DISCHARGE FROM BOWEL. UNABLE TO PERFORM OCCULT BLOOD TEST BOWEL MOVEMENT WAS LOST INTO TOILET. PT BACK TO BED. MEDICATION GIVEN FOR PAIN (SEE MAR). PT STOPS SHAKING AND RESPIRATORY RATE DECREASES TO 20BPM NORMAL RATE/RHYTHEM AND EFFORT AFTER 5 MINUTES. PT WATCHING TV. NO ADDITIONAL REQUESTS OR COMPLAINTS. CALL LIGHT DARLEEN CASTILLO.
--- NOTE | 2020-11-11 18:54 | NUR ---
DR FAUST UPDATED ON PTS RED BOWEL MOVEMENT. TELEPHONE ORDRES GIVEN TO STOP LOVENOX INJECTIONS AND ORDER CBC FOR MORNING LABS. ORDERS PLACED. PT UPDATED ON PLAN OF CARE AND NEW ORDERS. NO ADDITIONAL REQUESTS OR COMPLAINTS. CALL DELILAH CASTILLO.
--- NOTE | 2020-11-11 19:53 | NUR ---
Pt up to br with 1pa, voided had scant amount of red colored drainage, had small bm. voided, back to bed. midline abd incision with mile inplace, distended onthe right side more than the left. back to bed, scds in place. ivf infusing w/o problems
--- NOTE | 2020-11-11 20:35 | NUR ---
Up to br again, voided small amouns, passed gas, no bloody rectal discharge noted or on toilet paper. Back to bed, 1PA. IVf infusing, Coop with assessment. Nicotine patch removed from L back shoulder. midline abd incision pink edges well approx, dry, tender, distention of R abd side present compared to L. KARI. medicated with 2 [place] tabs 7/10 abd pain. scds in place. Tolerating fluids and diet, call light and fluids at bedside
--- NOTE | 2020-11-11 22:25 | NUR ---
Up to br, voided small amount, no bm, no bloody rectal drainage. back to bed, on room air, ivf infusing. mild pain relief from med given earlier stated
--- NOTE | 2020-11-12 00:11 | NUR ---
Awake, up to br, voided QS yellow urine, back to bed, 1PA, ivf infusing, midline abd incison w/o changes, tolerated well, back to bed
--- NOTE | 2020-11-12 00:49 | NUR ---
Up to br, voided small amount QS urine, c/o 05/28 abd pain, medicated with 2Norco, In bed, IVf infusing, room air, no n/v
--- NOTE | 2020-11-12 02:45 | NUR ---
resting, eyes closed, on room air, ivf infusing, call light at bedside
--- NOTE | 2020-11-12 03:49 | NUR ---
Up to br, passing gas, no bm, voided a very small amount in toilet, back to bed, tolerated fait, ivf infusing, scds on, call light and fluids at bedside
--- NOTE | 2020-11-12 04:41 | NUR ---
Pt in bed, c/o abd pain 05/28, medicated with 2 NOrco. Coop with assessment, abd w midline incision pink edges well approx, dry. distentin of lower abd present, KARI , passing gas, no bm. IVf infusing. VS done at this time at his requests "I do ot want to get woken up later if Baltazar asleep".
--- NOTE | 2020-11-12 05:58 | NUR ---
Pt has slept off and on, on room air. IVF infusing w/o problems. Midline abd incision with mile in place, open to air, low abd distention present. KARI, passing gas, no bm this shift. Had an incisiden tof droplets of red colored rectal drainage at begining of shift, none shince then. Voiding QS. Up to br every hour. Has been medicated x3 with 2 norcos per abd pain with good pain relief. SCDS in place, 1PA, tolerating fluids and full liquid diet well. uses call light. Ambulated in room to br, has tolerated well.
--- NOTE | 2020-11-12 06:59 | NUR ---
REPORT RECEIVED FROM MARILIN PATRICIA. PT RESTING WITH EYES CLOSED. ON BACK IN BED WITH HEAD OF BED ELEVATED TO 45 DEGREES . RESPIRATIONS EVEN AND UNLABORRED. BED RAILS UP. CALL LIGHT WITHIN REACH. PT ALLOWED TO REST.
--- NOTE | 2020-11-12 08:01 | NUR ---
MORNING ASSESSMENT DUE. PT AWAKE AND WATCHING TV. PT REPORTS 5/10 ACHING PAIN IN ABDOMEN. ASSESSMENT DONE. MIDLINE INCISION SHOWS EDGES WELL APROXIMATED. MILD ERYTHEMA NOTED AROUND EDGES OF INCISION. MILD DISTENTION IN LOWER ABDOMEN. ABDOMEN SOFT TO TOUCH BUT TENDER. PT REPORTS NAUSEA AND DECLINES BREAKFAST, SEE MAR FOR MEDICATION GIVEN. VITALS SIGNS WNL. 1 PERSON ASSIST UP TO CHAIR. PT REPORTS "I FEEL LIKE I NEED TO BELCH." PT POSITIONED WITH PILLOWS. PT DECLINES AM CARES AND ORAL CARE. LINENS CHANGED. NO ADDITIONAL REQUESTS OR COMPLAINTS AT THIS TIME. CALL LIGHT WITHIN REACH.
--- NOTE | 2020-11-12 08:56 | NUR ---
PT CALL LIGHT ON. PT REQUESTS ASSISTANCE UP TO RESTROOM. STAND BY ASSIST UP TO RESTROOM. PT VOIDS AND REPORTS "BURNING" PAIN WITH URINATION. MD DAMON, UA ORDERED. PT NOTIFIED TO TELL NURSING STAFF NEXT TIME HE NEEDS TO VOID SO SAMPLE CAN BE COLLECTED. STAND BY ASSIST BACK TO CHAIR. PT REPORTS 5/10 PAIN THAT IS "TOLLERABLE." NO ADDITONAL REQUESTS OR COMPLAINTS AT THIS TIME. COFFEE PROVIDED PER PT REQUEST. CALL LIGHT WITHIN [facility].
--- NOTE | 2020-11-12 09:36 | NUR ---
THIS RN TO ROOM TO CHECK ON PT. PT CONTINUES TO REPORT 5/10 ACHING PAIN IN ABDOMEN WELL FEELING OF FULLNESS. PT DENIES NEED FOR ADDITIONAL MEDICATION. PT DENIES NAUSEA BUT REPORTS HE CONTINUES TO HAVE NO APPITITE. NO ADDITIONAL REQUESTS OR COMPLAINTS AT THIS TIME. CALL LIGHT WITHIN REACH.
--- NOTE | 2020-11-12 10:03 | NUR ---
PT CALL LIGHT ON. THIS RN TO ROOM. PT REQUESTS ASSISTANCE UP TO RESTROOM STATING "I NEED TO PASS GAS." STAND BY ASSIST UP TO RESTROOM. PT REPROTS PASSING GAS. PT VOIDS 100ML CLEAR YELLOW URINE. SAMPLE SENT TO LAB. STAND BY ASSIST BACK TO CHAIR. WARM BLANKETS PROVIDED PER PT REQUESTS. NO ADDITIONAL REQUESTS OR COMPLAINTS. PT REPORTS 5/10 PAIN WHEN RESTING THAT IS "TOELRABLE" AT THIS TIME. CALL LIGHT WITHIN REACH.
--- NOTE | 2020-11-12 11:28 | NUR ---
PT CALL LIGHT ON. PT STATES "I NEED SOME REARRANGING." THIS RN TO ROOM. PT STATES HE IS "TOO HOT" AND WANTS HIS BLANKETS TAKEN OFF. BLANKETS REMOVED PER PT REQUEST. PT REPORTS 5/10 ACHING PAIN WHILE RESTING. PT OFFERED ICE PACK FOR ABDOMINAL INCISION, PT DECLINES. PT REPORTS NO APPITITE BUT REQUESTS COFFEE, COFFEE PROVIDED. PT DENIES ADDITIONAL REQUESTS OR COMPLAINTS AT THIS TIME. CALL LIGHT WITHIN REACH.
--- NOTE | 2020-11-12 12:16 | NUR ---
NOON ASSESSMENT DUE. PT UP TO CHAIR. PT REPORTS NAUSEA AND REQUESTS TO USE THE RESTROOM. STAND BY ASSIST UP TO RESTROOM. PT REPORTS FEELINDS OF "NEED TO PASS GAS." PT HAS SMALL RED BOWEL MOVEMENT. BOWEL MOVEMENT LOST IN TOILET, UNABLET TO TEST FOR OCCULT BLOOD. PT REPORTS FEELING BETTER AFTER RED BOWEL MOVMENT. UNMEASURED VOID WELL, UNABLE TO ASSESS COLOR OF URINE IT IS MIXED WITH BOWEL MOVMENT. HATS PLACED IN TOILET TO CATCH NEXT URINE AND BOWEL MOVMENT. STAND BY ASSIST BACK TO BED. ASSESSMET DONE. LUNG SOUND CLEAR. HEART RATE REGULAR. INCISION EDGES WELL APROXIMATED, NO DRAINAGE NOTED. MINOR REDDNESS NOTED AROUND INCISTION EDGES. DISTENTION CONTINUES IN LOWER ABDOMEN. TYMPANIC BOWEL TONES NOTED. PT REPORTS 7/10 ACHING PAIN ACROSS ABODMENT. MEDICATION GIVEN FOR NAUSEA AND PAIN, SEE MAR. STAND BY ASSIST BACK TO BED. PT REQUESTS TIME TO "TAKE A NAP." VITAL SIGNS STABLE. WARM BLANKETS PROVIDED. NO ADDITIONAL REQUESTS OR COMPLAINTS AT THIS TIME. CALL LIGHT WITHIN REACH.
--- NOTE | 2020-11-12 13:37 | NUR ---
THIS RN TO ROOM TO CHECK ON PT. PT STATES "I JUST WOKE UP." PT REPORTS PAIN HAS IMPROVED, NOW 4/10 ACHING PAIN IN ABDOMEN AND NAUSEA "IS GONE." STAND BY ASSIST UP TO RESTROOM. PT VOIDS 375ML CLEAR YELLOW URINE WITHOUT ISSUE. STAND BY ASSIST BACK TO BED. PT POSITIONED FOR COMFORT. SCD'S IN PLACE. BELONGINGS WITHIN REACH. NO ADDITIONAL REQUESTS OR COMPLAINTS. CALL LIGHT WITHIN REACH. BED RAILS UP.
--- NOTE | 2020-11-12 14:26 | NUR ---
THIS RN TO ROOM TO CHECK ON PT. PT STATES HE CONTINUED TO NAP AND WAS JUST WOKEN UP BY HIS PHONE. PT REPORTS 4/10 ACHING PAIN IN ABDOMENT THAT IS TOLERABLE. PT DENIES NAUSEA. NO ADDITIONAL REQUESTS OR COMPLAINTS. CALL LIGHT WITHIN REACH. PT TALKING ON PHONE WITH FRIEND.
--- NOTE | 2020-11-12 15:24 | NUR ---
THIS RN TO ROOM TO CHECK ON PT. PT RESTING WITH EYES CLOSED. RESPIRATIONS EVEN AND UNLABORED. BED RAILS UP. CALL LIGHT WITHIN REACH. PT ALLOWED TO REST UNDISTURBED.
--- NOTE | 2020-11-12 16:29 | NUR ---
AFTERNOON ASSESSMENT DUE. PT RESTING IN BED. PT REPORTS NAUSEA HAS RESOLVED AND PAIN IS "BETTER" NOW AT A 6/10 ACHING GENARLIZED ABDOMINAL PAIN, SEE MAR FOR MEDICATION GIVEN. ASSESSMENT DONE. LUNG SOUNDS CLEAR. HEART SOUNDS REGULAR. ABDOMEN MODERATLY DISTENDED BUT STILL SOFT. TENDER TO TOUCH. MIDLINE INCISION SHOWS EDGES WELL APROXIMATED WITH APROXIMATLY 1CM OF PINKNESS SURROUNDING EDGES. STAPES INTACT. NO DRAINAGE NOTED. PT REPORTS WORSENING HEARTBURN. MD CALLED AND UPDATED ON PT STATUS, PREVIOUS RED BOWEL MOVMENT, AND HEARTBURN. NEW ORDERS GIVEN AND PLACED. PRN MEDICATIONS GIVEN. PT CONTINUES RESTING IN BED. SCD'S IN PLACE. BED RAILS UP. CALL LIGHT WITHIN REACH. NO ADDITIONAL REQUESTS OR COMPLAINTS AT THIS TIME.
--- NOTE | 2020-11-12 17:08 | NUR ---
PT POST OP DAY 2 AFTER RIGHT COLECTOMY. PT UP TO CHAIR AND RESTROOM WITH STAND BY ASSIST THIS SHIFT. PT HAS MINIMAL APPITIE FOR FULL LIQUID DIET THIS SHIFT, TOLERATING PO FLUIDS WITH SOME NAUSEA THIS SHIFT. PRN NAUSEA AND PAIN MEDICATION GIVEN. PAIN WELL CONTROLED FORM -05/28 WITH ORAL PAIN MEDICAITONS. MIDLINE ABDOMINAL INCISION OPEN TO AIR WITH SEAN IN PLACE. EDGES WELL APROXIMATED, MINOR ERYTHEMA NOTED AROUND EDGES. ABDOMANAL DISTENTION NOTED. PT VOIDING QUATNTIY SUFFICIENT. NICOTENE PATCH IN PLACE TO LEFT SHOULDER. PT USES CALL LIGHT APPROPRIATLY.
--- NOTE | 2020-11-12 18:04 | NUR ---
PT CALL LIGHT ON. PT STATES HE WOULD LIKE TO GET UP TO THE CHAIR. STAND BY ASSIST UP TO CHAIR. PT POSITIONED FOR COMFORT WITH PILLOWS AND WARM BLANKETS. PT REPORTS 7/10 PAIN WHICH HE ATRIBUTES TO "WHEN I JUST COUGHED." PT DECLINES ICE PACK AND STATES HE WILL WAIT UNTIL 2030 WHEN NEXT DOSE OF NORCO IS DUE. PT DENIES NAUSEA. NO ADDITIONAL REQUESTS OR COMPLAINTS. CALL LIGHT WITHIN REACH.
--- NOTE | 2020-11-12 19:15 | NUR ---
RECEIVED REPORT FROM MUKUL PATRICIA. pt RESTING IN CHAIR. NO REQUESTS AT THIS TIME. WHITEBOARD UPDATED. CALL LIGHT WITHIN REACH.
--- NOTE | 2020-11-12 20:05 | NUR ---
in rm to sba/1pa pt from chair to bed, tolerating well with soreness, cleared pt bedside table, call light in reach, no further needs at this time, will get vitals shortly in sync with bp meds
--- NOTE | 2020-11-12 20:35 | NUR ---
IN RM TO GET PT UP TO THE TOILET, SBA/1PA OUT OF BED, PT PASSING 20MLS LIQUID BM WITH DARK BLOOD PRESENT, RN WAS INFORMED RIGHT AWAY AND VIEWED SPECIMEN, COLLECTED IN CUP, PT BACK IN BED AT THIS TIME, VITALS DONE, I&OS DONE, RN TO BE BACK IN WITH MEDS, SCDS ON, WORKING NORMALLY, CALL LIGHT IN PLACE, NO FURTHER NEEDS AT THIS TIME
--- NOTE | 2020-11-12 21:24 | NUR ---
MD CALLED AND UPDATED ON BLOOD IN STOOL. PER MD THIS IS EXPECTED AND HE DOES NOT NEED TO BE NOTIFIED OF SMALL AMOUNTS. DISCUSSED PAIN MANAGEMENT. NEW ORDERS ENTERED.
--- NOTE | 2020-11-12 21:27 | NUR ---
pt UP TO VOID, HAD BLOOD BM. 20 MLS, DARK RED IN COLOR, GELATINOUS. CONFIRMED BLOOD WITH HEMAOCCULT TEST. pt REPORTED NAUSEA AND 7/10 PAIN. PRN MEDICATION GIVEN WITH SCHEDULED MEDS. NICODERM PATCH REMOVED FROM LEFT SHOULDER. ASSESSMENT DONE. INCISION OPEN TO AIR, RED SKIN AROUND INCISION. EDGES WELL APPROXIMATED. ABD FIRM, pt REPORTED "IT IS A BIT SOFTER THAN IT WAS". BOWEL TONES ACTIVE. NO REQUESTS AT THIS TIME. CALL LIGHT WITHIN REACH.
--- NOTE | 2020-11-12 23:00 | NUR ---
IV PUMP BEEPING. ROUNDED ON pt. RESTING IN BED. NO REQUESTS AT THIS TIME. REPORTED 4/10 PAIN. DENIED NAUSEA. CALL LIGHT WITHIN REACH.
--- NOTE | 2020-11-13 00:30 | NUR ---
PT CALLED, NEEDED TO VOID, 1PA PT UP TO SIDE OF BED, PT HAD NAUSEA, RN NOTIFIED QUICKLY, NUASEA SUBSIDED ENOUGH TO USE TOILET, RN IN RM WITH MED AND RO ASSESS PT, NO FURTHER NEEDS AT THIS TIME
--- NOTE | 2020-11-13 00:45 | NUR ---
PATIENT JUST BACK FROM THE BATHROOM. PATIENT DEVELOPED NAUSEA AND 8/10 ABD PAIN UPON GETTING UP. 8MG IV ZOFRAN GIVEN AND 1MG IV DILAUDID FOR PAIN GIVEN SIVP. PATIENT BACK IN BED AT THIS TIME. CALL LIGHT IN REACH.
--- NOTE | 2020-11-13 00:48 | NUR ---
PT UP TO CHAIR AT THIS TIME, STILL FEELING SWEATY, NO FURTHER NEEDS AT THIS TIME
--- NOTE | 2020-11-13 01:16 | NUR ---
PT NOW BACK IN BED, SBA WALK, 1PA INTO BED, SCDS ON, CALL LIGHT IN REACH, ICE WATER TOPPED OFF, NO FURTHER NEEDS AT THIS TIME
--- NOTE | 2020-11-13 03:20 | NUR ---
PATIENT RESTING QUIETLY IN FOWLERS POSITION, EYES CLOSED, RESPIRATIONS REGULAR AND EVEN, CALL LIGHT IN REACH.
--- NOTE | 2020-11-13 04:33 | NUR ---
PATIENT UP TO THE BATHROOM AND BACK TO BED. GIVEN 10/325 X1 NORCO FOR 6/10 PAIN.
--- NOTE | 2020-11-13 05:34 | NUR ---
PT NEEDING TO SIT UP FOR A COUGH, BRACING WITH PILLOW, VITALS DONE AT THIS TIME, I&Os TOO, PT SITTING AT EGDE OF BED AT THIS TIME, RN IS AWARE
--- NOTE | 2020-11-13 05:40 | NUR ---
PATIENT HAS HAD 2MG IV DILAUDID AND 1X10/325MG NORCO FOR PAIN THROUGH THE SHIFT. PATIENT'S CURRENT PAIN IS AT 5/10, WHICH IS AT HIS TOLERANCE LEVEL. PATIENT HAS BEEN UP X2 TO VOID SINCE 2300 AND IV IS INFUSING WNL. PATIENT'S INCISION REMAINS OPEN TO THE AIR, INCISION WELL APPROXIMATED AND STABLES INTACT. PATIENT HAS BOWEL TONES AND HAD SOME BLOODY LIQUID STOOL AT THE BEGINING OF THE SHIFT. PATIENT IS CURRENTLY SITTING ON HIS BEDSIDE HE NEEDED TO COUGH AND WANTED TO SIT UP TO DO SO. CALL LIGHT IS IN REACH. PATIENT HAS SLEPT BETWEEN PAIN MEDICATION DOSES.
--- NOTE | 2020-11-13 09:24 | NUR ---
pt c/o 05/28 abdominal pain this morning. Says he slept well last night but is rocking and diaphoretic this morning. Pt is tearful. Given 10 mg of hydrocodone and pt moved from chair to bed. Pt now says pain is slightly relieved being in bed. zofran given for nausea as well.
--- NOTE | 2020-11-13 09:30 | NUR ---
DR FAUST NOTIFIED OF LOW URINE OUTPUT OF 350 MLS FROM SENIOR LITIGATION PARALEGAL AND NO OUTPUT SO FAR THIS SHIFT. ORDERS TO INCREASE IV FLUIDS FROM 75 TO 100 MLS/HR. MD IN TO SEE PT AND ASSESS.
--- NOTE | 2020-11-13 11:44 | NUR ---
Pt given bisacondyl and fleet water enema laying on left side. Tolerated well. Commode at bedside and call light within reach.
--- NOTE | 2020-11-13 12:00 | NUR ---
PT HAD SMALL BM W/ SMALL SOFT FORMED PIECES OF STOOL AND 100 MLS OF LIQUID. PT PASSED LARGE AMOUNTS OF GAS AND REPORTED TO FEEL "EXTREMELY RELIEVED" AFTER BM. PT BACK TO CHAIR AND REPORTS ABDOMINAL PAIN 5/10 AT THIS TIME. WILL CONTINUE TO MONITOR CLOSELY. PT HAS AMBULATED BACK AND FORTH IN ROOM X4 TODAY. WILL WALK IN VAUGHN AFTER BOWELS HAVE SETTLED FROM ENEMAS.CALL LIGHT IS IN REACH.
--- NOTE | 2020-11-13 13:53 | NUR ---
PATIENT IS UP IN CHAIR, VITALS AND I&OS CHARTED. CALL IGHT IN REACH, NO OTHER NEEDS AT THIS TIME
--- NOTE | 2020-11-13 15:45 | NUR ---
SBA WITH PATIENT, AMBULATED 1 SHORT LOOP AROUND NURSES STATION. PATIENT TOLERATED WELL.
--- NOTE | 2020-11-13 15:45 | NUR ---
PT C/O 6/10 ABDOMINAL PAIN AT REST, 10 MG NORCO GIVEN PT'S PAIN HAS BEEN DIFFICULT TO CONTROL ONCE AT 7 OR GREATER. PT AMBULATED IN VAUGHN W/ [employer] CORPORATE PILOT. CONTINUES TO NEED ONLY STANDBY ASSISTANCE. TOLERATING ACTIVITY WELL AFTER PAIN MEDICATION. PT SHOWERED. DRINKING FLUIDS WELL. NEW BAG OF D5 LR HUNG. LUNG ARE CLEAR. VSS. PT IS AFEBRILE. INCISION SITE HAS NO CHANGES. PT REPORTS TO FEEL LESS DISTENDED AFTER EARLIER BM AND DECREASED ABDOMINAL TENDERNESS. SAYS HE FEELS "SO MUCH BETTER" AND IS WITHOUT COMPLAINT AT THIS TIME. UP IN CHAIR WATCHING TELEVISION, CALL LIGHT WITHIN REACH.
--- NOTE | 2020-11-13 17:57 | NUR ---
IN TO GIVE CARVIDELOL AND NOTIFY PT AND OF CT RESULTS PER PERMISSION FROM DR. MCKINNEY. PT NOW C/O NAUSEA AGAIN, DRY HEAVING AND HICCUPS WELL. ZOFRAN IV GIVEN. PT C/O BURNING W/ LEFT WRIST IV FLUSH, MINIMAL REDNESS AND SWELLING NOTED AROUND SITE. IV REMOVED. RAC IV REMAINS INTACT. LR CONTINUES TO INFUSE @ 100 MLS/HR. NO LONGER AT BEDSIDE, WILL RETURN IN THE MORNING. PT CALL LIGHT WITHIN REACH.
--- NOTE | 2020-11-13 18:31 | NUR ---
PATIENT AWAKE IN CHAIR, VITALS AND I&OS CHARTED. BREEZY EMPIED, CALL LIGHT IN REACH, NO OTHER NEEDS AT HIS TIME
--- NOTE | 2020-11-13 20:53 | NUR ---
PATIENT HAVING A LITLE NAUSEA AND GOT 8MG IV ZOFRAN. PT IS HAVING 7/10 ABD PAIN, BUT WANTED TO TAKE HIS PO MEDS, O THESE WERE GIVEN WELL 1X10/325MG NORCO.
--- NOTE | 2020-11-13 23:10 | NUR ---
PATIENT RESTING QUIETLY, EYES CLOSED, RESPIRATIONS REGULAR AND EVEN, CALL LIGHT IN REACH.
--- NOTE | 2020-11-13 23:52 | NUR ---
PATIENT AWAKE, PAIN 4/10, MORE ICE WATER GIVEN PER PATIENT REQUEST. PATIENT COMFORTALE AT THIS TIME. CALL LIGHT IN REACH.
--- NOTE | 2020-11-14 01:12 | NUR ---
PATIENT REQUESTED MEDICATION FOR HEART BURN, AND 30ML OF MAALOX GIVEN.CALL LIGHT IN REACH.
--- NOTE | 2020-11-14 02:05 | NUR ---
PT'S IV WAS BEEPING, IT IS NOW INFUSING FINE. PROVIDED A PILLOW TO PUT UNDER HIS ARM TO HELP HIM KEEP IT STRAIGHT. EMPTIED 200 OF URINE AND PT DENIES FURTHER NEEDS. CALL LIGHT IS CLOSE.
--- NOTE | 2020-11-14 03:15 | NUR ---
PATIENT RESTING QUIETLY IN BED, EYES CLOSED, RESPIRATIONS REGULAR AND EVEN, CALL LIGHT IN REACH.
--- NOTE | 2020-11-14 05:06 | NUR ---
IN PT RM TO GET VITALS, WATER TOPPED OFF, NO FURTHER NEEDS AT THIS TIME
--- NOTE | 2020-11-14 05:07 | NUR ---
PATIENT HAS DONE WELL TONIGHT, HAS ONLY NEEDED 1 NORCO AT THE BEGINING OF THE SHIFT, AND JUST GOT ONE AGAIN NOW FOR 7/10 ABD DISCOMFORT. PATIENT ALSO GOT SOME MAALOX FOR SOME HEART BURN LAST NIGHT. OTHERWISE HE HAS SLEPT MOST OF THE SHIFT. UP TO THE BATHROOM INDEPENDENTLY. SURGICAL SITE UNCHANGED AND ABD A LITTLE SOFTER. PATIENT HAD 1 VERY SMALL BLOOD CLOT BM, LIKE HE DID PER REPORT DAY BEFORE YESTERDAY, NO RECTAL PAIN. PATIENT WATCHING TV AT THIS TIME. CALL LIGHT IN REACH
--- NOTE | 2020-11-14 07:45 | NUR ---
pt is awake and doing well this morning. Reports pain is decreased to 5/10 and tolerable. Says he slept well last night. Independent in room. Midline incision is intact and dry, OPA. Surrounding area remains slightly pink, no abnormal warmth. Abdomen is still slightly distended, pt states it is less tender. Pt is tolerating clear liquids well. Urine output has been adequate. Pt in bed and call light is in reach.
--- NOTE | 2020-11-14 08:23 | NUR ---
PATIENT SLEEPING. WHITE BOARD UPDATED. CALL LIGHT WITHIN REACH. NO OTHER NEEDS AT THIS TIME
--- NOTE | 2020-11-14 09:23 | NUR ---
PATIENT SITTING UP IN BED WATCHING TV. VITAL SIGNS AND I&O DONE. COFFEE GIVEN. CALL LIGHT WITHIN REACH. NO OTHER NEEDS AT THIS TIME
--- NOTE | 2020-11-14 09:40 | NUR ---
IN TO ADMISNTERED PHOS FOR PRIMARY RN COLETTE. PT AWAKE IN BED. DENIES PAIN, CLEAR LIQUID TRAY AT BEDSIDE. REPORTS ABDOMEN IS IMPROVING.
--- NOTE | 2020-11-14 11:41 | NUR ---
pt resting in bed. Rates abdominal pain 3/10 at this time. Has been getting up independently in room to ambulate. In to flush RAC IV for distal occlusion, IV remains patent. Pt has no other needs at this time.
--- NOTE | 2020-11-14 15:43 | NUR ---
PATIENT AMBULATING IN THE HALLWAY
--- NOTE | 2020-11-14 15:50 | NUR ---
CALL LIGHT ANSWERED. PATIENT ASKS FOR PAIN MEDICATION. RN NOTIFIED
--- NOTE | 2020-11-14 17:07 | NUR ---
PHOSPHORUS INFUSION IS COMPLETE. PT IS IN BED WATCHING TV. SCD'S ARE ON. EDUCATED ON USE OF INCENTIVE SPIROMETER. MIDLINE INCISION SITE REMAINS UNCHANGED IN APPEARANCE AND PT DENIES NAUSEA AT THIS TIME. ABDOMINAL PAIN IS 4/10. PT STATES HE IS "COMFORTABLE" AND DOES NOT WANT CLEAR LIQUID TRAY BUT WILL DRINK WATER. NO OTHER NEEDS AT THIS TIME.
--- NOTE | 2020-11-14 17:24 | NUR ---
PATIENT SITTING UP IN BED WATCHING TV. VITAL SIGNS AND I&O DONE. CALL LIGHT WITHIN REACH. NO OTHER NEEDS AT THIS TIME
--- NOTE | 2020-11-14 19:16 | NUR ---
PT HAS AMBULATED IN HALLWAY X3 TODAY AND HAS BEEN AMBULATORY IN ROOM. UP IN CHAIR THROUGHOUT DAY. TOLERATING CLEAR LIQUID DIET WELL. ATTEMPTED TO START NEW IV IN LFA, IV INFILTRATED AND REMOVED. MINIMAL SWELLING. RAC IV REMAINS PATENT. NO ACUTE CHANGES. PAIN WELL MANAGED BY NORCO. BOWEL TONES ACTIVE. PT IS IN BED FOR EVENING. NO OTHER NEEDS AT THIS TIME.
--- NOTE | 2020-11-14 19:42 | NUR ---
SHIFT REPORT FROM NURSE ALVARENGA. PT SITTING UP IN BED, A/O AND TALKATIVE. PT REQUESTS JUICE. NO OTHER NEEDS AT THIS TIME. CALL LIGHT WITHIN REACH.
--- NOTE | 2020-11-14 19:50 | NUR ---
GRAPE JUICE AND ICE WATER PROVIDED.
--- NOTE | 2020-11-14 20:20 | NUR ---
PT AMBULATING IN HALLS WITH MASK ON. PT STOPS AT NURSES STATION TO VISIT. PT APPEARS IN GOOD SPIRITS.
--- NOTE | 2020-11-14 21:40 | NUR ---
ASSESSMENT COMPLETE. EVENING MEDS GIVEN. PT REPORTS PAIN 4/10 WHICH IS TOLERABLE FOR PT. PT UNDERSTANDS TO NOT LET PAIN GET TOO HIGH BEFORE TAKING NEXT DOSE OF PAIN MED. VSS. MIDLINE INCISION REMAINS SLIGHTLY PINK AT THE BORDERS; CDI. IVF WNL. PT DENIES FURTHER NEEDS AT THIS TIME. CALL LIGHT WITHIN REACH.
--- NOTE | 2020-11-14 23:07 | NUR ---
CHECKED ON PT. PT SLEEPING WITH SUPINE WITH RIGHT TILT. EVEN UNLABORED BREATHING. NO SIGNS OF DISTRESS.
--- NOTE | 2020-11-15 00:42 | NUR ---
CALL LIGHT ON. IV PUMP BEEPING. ERROR RESOLVED. pt RESTING IN BED. NO REQUESTS AT THIS TIME. CALL LIGHT WITHIN REACH.
--- NOTE | 2020-11-15 02:15 | NUR ---
CALL LIGHT ANSWERED. PT REQUESTS "SOMETHING FOR HEARTBURN". PRN MAALOX PROVIDED. PT GETTING UP TO TOILET AFTER MED ADMINISTRATION. PT DENIES FURTHER NEEDS AT THIS TIME.
--- NOTE | 2020-11-15 02:25 | NUR ---
ANSWERED CALL LIGHT. PATIENT VOIDED AND HAD SOFT TARRY BLACK BOWEL MOVEMENT.
--- NOTE | 2020-11-15 05:48 | NUR ---
IN ROOM FOR MORNING VS. PT C/O HEARTBURN; DESCRIPTION OF SYMPTOM SOUNDS LIKE NAUSEA. PT IS HOLDING EMESIS BAG TO MOUTH. 8MG PRN ZOFRAN ADMINISTERED IV. BOWEL TONES ACTIVE. ABDOMEN IS FIRM, DISTENDED; SIMILAR TO START OF SHIFT. WILL CONTINUE TO MONITOR
--- NOTE | 2020-11-15 06:06 | NUR ---
RECHECK PT; PT STILL REPORTING HEARTBURN. PT IS SITTING AT BEDSIDE, ROCKING SLIGHTLY. PT STATES THE TASTE IN HIS THROAT IS "HORRIBLE". PRN MAALOX ADMINISTERED PT GOT NO RELIEF FROM ZOFRAN. WILL CONTINUE TO MONITOR.
--- NOTE | 2020-11-15 06:43 | NUR ---
IV PUMP ALARMING DISTAL OCCLUSION, IVF INFUSING WNL. SMALL SMEAR BM NOTED, DARK BROWN IN COLOR, CONCENTRATED VOID. pt RESTING IN BED WATCHING TV. NO REQUESTS AT THIS TIME.
--- NOTE | 2020-11-15 07:22 | NUR ---
PATIENT RESTING IN BED. WHITE BOARD UPDATED. CALL LIGHT WITHIN REACH. NO OTHER NEEDS AT THIS TIME
--- NOTE | 2020-11-15 08:09 | NUR ---
Enema administered at this time. Patient reports severe abd pain. [place] one tab of 5/325mg po admin for abd pain.
--- NOTE | 2020-11-15 08:30 | NUR ---
CALL LIGHT ANSWERED. PATIENT USING THE BASE COMMODE. PERICARE PERFORMED. GOWN CHANGED. THE STOOL LOOKS BLOODY. RN IN CHARGE NOTIFIED, SHE LOOKED AT THE SAMPLE AND SAID THE STOOL WAS EXPECTED TO HAVE SOME BLOOD. RN NOTIFIED TOO. CALL LIGHT WITHIN REACH. NO OTHER NEEDS AT THIS TIME
--- NOTE | 2020-11-15 09:20 | NUR ---
PATIENT SITTING UP IN BED. VITAL SIGNS AND I&O DONE. CALL LIGHT WITHIN REACH. NO OTHER NEEDS AT THIS TIME
--- NOTE | 2020-11-15 11:30 | NUR ---
Spoke with Boogie. He denies change in plan for dc. He will go home with his 82 yo dad[address] He states Dr. Rodrigez plans on him staying 2-4 more days.
--- NOTE | 2020-11-15 11:46 | NUR ---
Patient a&ox4, respiration even and non labored. Patient has no distress noted. Pt reports improved abdominal distention, denies nausea and taking in sips of water. Pt encouraged to CDB and walk in hallways. No needs at this time.
--- NOTE | 2020-11-15 13:01 | NUR ---
[place] 10/325mg po admin for reports of 7/10 abdominal pain.
--- NOTE | 2020-11-15 13:01 | NUR ---
CALL LIGHT ANSWERED. PATIENT ASKS FOR PAIN MEDICATION, RN NOTIFIED. VITAL SIGNS AND I&O DONE. CALL LIGHT WITHIN REACH. NO OTHER NEEDS AT THIS TIME
--- NOTE | 2020-11-15 13:23 | NUR ---
Patient up ambulating in hallway independently; tolerating well.
--- NOTE | 2020-11-15 14:13 | NUR ---
Patient resting in bed, a&ox4. Pt reports he still is a bit distended, but improved from earlier. Patient denies nausea. VS are stable and urine output q/s. Patient has no needs.
--- NOTE | 2020-11-15 16:56 | NUR ---
PATIENT SITTING UP IN BED. VITAL SIGNS AND I&O DONE. CALL LIGHT WITHIN REACH. NO OTHER NEEDS AT THIS TIME
--- NOTE | 2020-11-15 17:03 | NUR ---
[place] 10/325m po admin for reports of 7/10 abd pain.
--- NOTE | 2020-11-15 19:25 | NUR ---
SHIFT REPORT FROM NURSE PARK. PT AWAKE AND ALERT IN BED. PT REPORTS FRESH BM IN TOILET. SMALL AMOUNT DARK TO BLACK COLORED LIQUID STOOL IN HAT. PT REQUESTS APPLE JUICE MIXED WITH WATER WHICH IS PROVIDED. PT DENIES FURTHER NEEDS AT THIS TIME.
--- NOTE | 2020-11-15 20:07 | NUR ---
DISCUSSION WITH PT RE: BLOATING AND ABDOMINAL DISTENTION THAT HE HAD THIS AM. PT REPORTS THAT HE HAD A LOT OF RELIEF FROM FLEET ENEMA. CALL IN TO DR FAUST WHO GAVE ORDER FOR FLEET ENEMA PRN FOR BLOATING AND CONSTIPATION. SEE EMAR.
--- NOTE | 2020-11-15 20:25 | NUR ---
PATIENT IS TAKING SHOWER. CHANGED BED LINEN.
--- NOTE | 2020-11-15 21:15 | NUR ---
ASSESSMENT COMPLETE. PT JUST OUT OF SHOWER. PT REPORTS PAIN 5-6/10 ON BILATERAL ABDOMEN. PRN NORCO PROVIDED. MIDLINE INCISION CDI; REMAINS PINK NEAR BORDERS. PT REPORTS NO FLATUS; HAS HAD 2 SMALL DARK BM SINCE START OF THIS SHIFT. PT DENIES NEEDS AT THIS TIME. CALL LIGHT WITHIN REACH
--- NOTE | 2020-11-15 23:39 | NUR ---
CHECKED ON PT. PT APPEARS TO BE SLEEPING; LAYING ON RIGHT LATERAL SIDE. IV WNL. CALL LIGHT WITHIN REACH.
--- NOTE | 2020-11-16 00:15 | NUR ---
PT AMBLUATED TO NURSES STATION TO REPORT A BM. BM IS DARK, LOOSE WITH RED TINT. APPROX 100ML LOOOSE BM. PT REPORTS BEING UNABLE TO SLEEP. DISCUSSED REPOSITIONING AND HOT TEA. PT AGREES TO DECAF HOT TEA. NO FURTHER NEEDS AT THIS TIME
--- NOTE | 2020-11-16 02:41 | NUR ---
IN ROOM TO HANG NEW IV BAG. PT AWOKE NURSE WAS IN ROOM. DENIES NEEDS AT THIS TIME. CALL LIGHT WITHIN REACH.
--- NOTE | 2020-11-16 05:04 | NUR ---
CALL LIGHT ANSWERED. PT WOULD LIKE TO MOVE TO CHAIR TO TRY TO SLEEP. ANOTHER BM IN TOILET. LIQUID JULIO COLORED STOOL; APPROX 100ML. PT SITUATED IN CHAIR TO ATTEMPT TO SLEEP. PT REPORTS HE HAS NOT SLEPT VERY MUCH THIS NIGHT.
--- NOTE | 2020-11-16 05:40 | NUR ---
IN ROOM FOR MORNING ASSESSMENT AND VS. PT STATES "I JUST FELL ASLEEP" (LAB WAS IN ROOM DRAWING BLOOD). BOWEL TONES IN UPPER QUADRANTS HYPOACTIVE; LOWER QUADRANTS ACTIVE. VSS. PT STATES THAT HE "JUST WANTS TO GET SOME SLEEP". CALL LIGHT WITHIN REACH
--- NOTE | 2020-11-16 07:25 | NUR ---
pt up in , bedside report from demetrio trevino. xray complete - no stool in vault, iv d5lr at 100 fusing well, clear liq diet cont. today. pt tired, denies needs, call light in reach.
--- NOTE | 2020-11-16 08:02 | NUR ---
PATIENT SITTING UP IN CHAIR. WHITE BOARD UPDATED. APPLE JUICE GIVEN. CALL [facility] WITHIN REACH. NO OTHER NEEDS AT THIS TIME
--- NOTE | 2020-11-16 09:25 | NUR ---
PATIENT SITTING UP IN CHAIR. VITAL SIGNS AND I&O DONE. CALL LIGHT WITHIN REACH. NO OTHER NEEDS AT THIS TIME
--- NOTE | 2020-11-16 11:31 | NUR ---
pt had 50 ml emisis and abd is distended and firm. exercise science internship aware. enc pt to amb and move in joshi and room, pt has walked in joshi with his mask on.
--- NOTE | 2020-11-16 11:39 | NUR ---
rn in rm assisted pt to walk in around bed, positive bowel sounds - active. lungs clear - assessment completed, abd firm and distended - midline inc. with mile well approximated, wnl no drainage.
--- NOTE | 2020-11-16 12:27 | NUR ---
PATIENT AMBULATING IN THE HALLWAY
--- NOTE | 2020-11-16 13:28 | NUR ---
PATIENT SITTING UP IN CHAIR. VITAL SIGNS AND I&O DONE. CALL LIGHT WITHIN REACH. NO OTHER NEEDS AT THIS TIME
--- NOTE | 2020-11-16 13:47 | NUR ---
pt up in , amb in room, 50 ml of emisis - brown, passing christy per report at 10 am had small liq bm.
--- NOTE | 2020-11-16 15:46 | NUR ---
No change in plan for dc.
--- NOTE | 2020-11-16 16:42 | NUR ---
PT UP AMB IN ROOM TO VAUGHN INDEPENDENT - ABD DISTENDED - DENIES OTHER NEEDS.
--- NOTE | 2020-11-16 16:56 | NUR ---
PT UP IN ROOM AND VAUGHN AMB INDEPENDENTLY TODAY, ABD DISTENDED AND FIRM, PT NOTED TO HAVE N/V AND IV MEDS FOR IT. PT HAD CLEAR LIQ ON AND OFF AND MULTIPLE LOOSE BM AND GAS THROUGHOUT THE DAY. PT IRRITABLE.
--- NOTE | 2020-11-16 17:06 | NUR ---
updated dr barraza of pt status, sm emesis, mulitple bm and gas. pt anxious. and c/o heartburn -abd pain and fullness 05/28 pt watching football sitting in and walking in - rn in room.
--- NOTE | 2020-11-16 17:26 | NUR ---
PATIENT SITTING UP IN CHAIR. RN IN ROOM. VITAL SIGNS AND I&O DONE. CALL LIGHT WITHIN REACH. NO OTHER NEEDS AT THIS TIME
--- NOTE | 2020-11-16 18:13 | NUR ---
CALL LIGHT ANSWERED. PATIENT ASKS FOR ICE WATER. ICE WATER PROVIDED. CALL LIGHT WITHIN REACH. NO OTHER NEEDS AT THIS TIME
--- NOTE | 2020-11-16 19:30 | NUR ---
REPORT RECEIVED FROM DAY SHIFT RN. PT LYING IN BED ALERT AND ORIENTED. REPORTS PAIN IS TOLERABLE. IVF INFUSING. DENIES NEEDS. WHITE BOARD UPDATED. CALL LIGHT IN REACH.
--- NOTE | 2020-11-16 21:40 | NUR ---
EVENING ASSESSMENT COMPLETE. SCHEDULED MEDS ADMINISTERED PER EMAR. PT DENIES NAUSEA. PRN ADMINISTERED FOR 7/10 ABD PAIN. ABD FIRM AND DISTENDED. BOWEL TONES ACTIVE. PT REPORTS FLATUS. SMALL AMOUNT OF SOFT BROWN STOOL EMPTIED FROM BR. MIDLINE INCISION INTACT WITH SEAN. DRY/CRUSTY YELLOW DRAINAGE AROUND SEAN. REDNESS NOTED AT BOTTOM OF INCISION, NO WARMTH NOTED. IVF INFUSING. NO FURTHER NEEDS. CALL LIGHT IN REACH.
--- NOTE | 2020-11-17 00:49 | NUR ---
PT RESTING IN BED WITH EYES CLOSED, NAD.
--- NOTE | 2020-11-17 02:13 | NUR ---
CALL LIGHT ANSWERED. PT UP TO BR AND NEEDS HATS IN BR EMPTIED. SMALL AMOUNT OF SOFT STOOL EMPTIED. PT DENIES PAIN OR NAUSEA. NO FURTHER NEEDS AT THIS TIME.
--- NOTE | 2020-11-17 06:19 | NUR ---
ASSESSMENT COMPLETE. PT DENIES PAIN OR NAUSEA. MIDLINE INCISION INTACT WITH SEAN. DRY/CRUSTY YELLOW DRAINAGE NOTED. ABD REMAINS FIRM AND DISTENDED. PT REPORTS "PASSING GOOD AMOUNT OF GAS". SMALL SOFT BM X 1. PT REPORTS HE "HAD A GOOD NIGHT".
--- NOTE | 2020-11-17 07:35 | NUR ---
SHIFT REPORT FROM NURSE MERCADO. PT GETTING UP TO USE RESTROOM. PT DENIES FURTHER NEEDS AT THIS TIME.
--- NOTE | 2020-11-17 09:20 | NUR ---
IN ROOM FOR MORNING MEDS; IMAGING HERE TO TAKE PT FOR BOWEL STUDY. PT SALINE LOCKED FOR PROCEDURE. PT STATES HE WOULD LIKE TO ADVANCE TO A MORE ADVANCED DIET. DISCUSSED WITH PT THAT HE MAY BE ABLE TO AFTER DR FAUST REVIEWS TEST RESULTS.
--- NOTE | 2020-11-17 09:43 | NUR ---
Patient off floor. Garbage emptied, new hat in toilet. Linens changed, fresh ice water provided
--- NOTE | 2020-11-17 11:00 | NUR ---
Spoke with pt. and he is nauseated following scan with contrast. States he really wanting to go home as he is concerned about his father. He states he has just received pain meds and RN is getting his nausea meds.
--- NOTE | 2020-11-17 11:15 | NUR ---
PT RETURNED TO FLOOR WITH HEAVY NAUSEA. 8MG IV ZOFRAN ADMINISTERED. PT GOES INTO BATHROOM ON KNEES AT GARBAGE CAN. WET WASHCLOTH PROVIDED TO PT. PT DID RETURN TO CHAIR WITH NO EMESIS. NO FURTHER NEEDS AT THIS TIME
--- NOTE | 2020-11-17 12:48 | PATH ---
[facility] [address], [place] [address] Signed SPECIMEN(S): A RIGHT COLON SPECIMEN SOURCE: A. RIGHT COLON CLINICAL HISTORY: Right colectomy. Large serpiginous sessile cecal polyp. FINAL PATHOLOGIC DIAGNOSIS: Colon, right, hemicolectomy: - Tubulovillous adenoma; negative for high-grade dysplasia or invasive carcinoma. - Tubulovillous adenoma is well distant from surgical margins. - Appendix with no significant pathologic changes. - Background colon and small bowel with no significant pathologic changes. - One benign reactive lymph node. BRP:[facility]:C2NR MICROSCOPIC EXAMINATION: Histologic sections of all submitted blocks are examined by light microscopy. These findings, together with the gross examination, support the pathologic diagnosis. GROSS DESCRIPTION: The specimen, labeled "LB," and designated on the requisition "right colon," is received in formalin and consists of a previously opened segment of ileum (7.3 cm in length x 3.5 cm in circumference) attached to cecum and ascending colon (13.0 cm in length and ranging in circumference from 7.0-7.5 cm) with attached mesentery (extending up to 8.7 cm) and appendix (6.9 cm in length x 0.7 cm in diameter). The proximal ileal margin and mesenteric root margin are inked blue, the distal bowel margin is inked black, and the serosa adjacent to the polyp is inked green. The mucosa of the ileum is pink to brown-carrillo and unremarkable. There is a pink-carrillo polyp (2.9 x 2.8 x 1.3 cm) with serpiginous borders that is located 5.4 cm from the ileocecal valve, and 10.2 cm from the distal ascending colon margin. The polyp appears grossly confined to the mucosa. The specimen was received previously opened directly adjacent to the polyp causing separation and distortion of the bowel wall. The remainder of the bowel mucosa is pink-carrillo and unremarkable. PATIENT NAME: BARBY MATTA PATHOLOGY DATE OF : 63 REPORT #: [id number] PHYSICIAN: CÉSAR RIVERA PCP: LENNY ROBLES MD REPORT IS CONFIDENTIAL AND NOT TO BE RELEASED WITHOUT AUTHORIZATION [facility] [address], [place] [address] Signed Sectioning of the appendix reveals a pink-carrillo, grossly unremarkable cut surface. The fat is removed and placed in TriFix. Doughnut Batter Mixer sections are submitted as follows: Cassette Summary: (A1-A7) Entire polyp (A8) Appendix (A9) Ileocecal valve (A10) Proximal and distal bowel margins with adjacent ileum and ascending colon (A11) Mesenteric root margin, shaved, en face AC (under the direct supervision of a pathologist) The Gross Description was prepared using a voice recognition system. The report was reviewed for accuracy; however, sound-alike word errors, addition and/or deletions may occur. If there is any question about this report, please contact Client Services. PERFORMING LABORATORY: The technical component was performed by [facility] [address] (Track Hoe Operator: Alicia Rodriguez MD; CLIA# [id number]). [facility], [address] [address] (CLIA# [id number]). Diagnostician: Kolton Pickens MD Pathologist Electronically Signed 11/17/2020 Copies: ~ PATIENT NAME: BARBY MATTA PATHOLOGY DATE OF : 63 REPORT #: [id number] PHYSICIAN: CÉSAR PATHOLOGY PCP: LENNY ROBLES MD REPORT IS CONFIDENTIAL AND NOT TO BE RELEASED WITHOUT AUTHORIZATION
--- NOTE | 2020-11-17 14:01 | NUR ---
PT REPORTS PAIN STILL LINGERING AT 8/10 ABDOMEN. PRN NORCO PO ADMINISTERED WELL A WARM BLANKET TO ABDOMEN. PT CONTINUES TO HAVE INCREASING AMOUNTS OF WATERY BROWN STOOL. PT SITTING UP IN CHAIR WATCHING TV. NO FURTHER NEEDS AT THIS TIME.
--- NOTE | 2020-11-17 14:11 | NUR ---
PATIENT AWAKE IN BED, FEELING NAUSEOUS. RN NOTIFIED. VITAL AND I&OS CHARTED. CALL LIGHT IN REACH. SMALL CAN OF SPRITE PROVIDED.
--- NOTE | 2020-11-17 14:14 | NUR ---
PT AMBULATES TO NURSES STATION TO REPORT PAIN 10/10. 1MG IV DILAUDID ADMINISTERED AT THIS TIME. PT STAYS IN CHAIR. CALL LIGHT WITHIN REACH.
--- NOTE | 2020-11-17 15:47 | NUR ---
IVF RESTARTED ON PT. IVF WERE ON HOLD DURING BOWEL STUDY. PT PROVIDED WITH WARM BLANKET. PT CONTINUES TO HAVE WATER CONSISTENCY BM; BROWN IN COLOR. ABDOMEN REMAINS FIRM. MIDLINE INCISION CDI. NO FURHTER NEEDS AT THIS TIME. CALL LIGHT WITHIN REACH
--- NOTE | 2020-11-17 17:55 | NUR ---
pt c/o pain 06/28 abdomen/back/ribs. prn norco provided. pt continues to have loose brown watery bm. pt informed of npo at midnight status and understands. no further needs at this time.
--- NOTE | 2020-11-17 19:05 | NUR ---
SHIFT REPORT RECEIVED FROM DAYSARFT BELEM WAKEFIELD AT BEDSIDE. pt AT END OF DAYSHIFT, FAMILY IN ROOM WITH pt. WAITING ON SON ANTONIO TO ARRIVE. FAMILY DENIES NEEDS AT THIS TIME.
--- NOTE | 2020-11-17 19:05 | NUR ---
SHIFT REPORT RECEIVED FROM CORINNEVTMEME WAKEFIELD AT THIS TIME. pt AWAKE AND RESTING IN BED, WATCHING TV. IV FLUIDS INFUSING, SITE WNL. DAVINA ASSESSED pt'S BUTTOCKS AT THIS TIME, MILD REDDNESS NOTED, BLANCHABLE. EDUCATION GIVEN ON IMPORTANCE TO TURN IN BED, pt VERBALIZED UNDERSTANDING. NO FURTHER NEEDS, CALL LIGHT IN REACH.
--- NOTE | 2020-11-17 20:16 | NUR ---
PATIENT IN BED RESTING. VITALS AND I&O DONE. CALL LIGHT IN REACH. NO OTHER NEEDS AT THIS TIME.
--- NOTE | 2020-11-17 20:31 | NUR ---
ASSESSMENT COMPLETE, SCHEDULED MEDS GIVEN (SEE EMAR). pt REPORTS TOLERABLE 6/10 PAIN, ABD FIRM WITH ACTIVE BOWEL TONES. pt DENIES NAUSEA. MIDLINE INCISION KAYLA, SEAN INTACT. MINIMAL REDDNESS NOTED AROUND SOME OF THE SEAN, NO CHANGE PER SHIFT REPORT. WILL MONITOR. IV FLUIDS INFUSING, SITE PATENT AND FLUSHES WELL. NO FURTHER NEEDS. CALL LIGHT AT REACH.
--- NOTE | 2020-11-17 20:45 | NUR ---
THIS RN WITNESSED pt's SIGNATURE ON CONSENT FORM. pt DENIES ADDITIONAL NEEDS AT THIS TIME, CALL LIGHT IN REACH.
--- NOTE | 2020-11-17 21:36 | NUR ---
PRN NORCO GIVEN (SEE EMAR) FOR INCREASED 7/10 ABD AND BACK PAIN. TIOLET HAT ALSO EMPTIED, 200MLS UO AND BM X1 NOTED. pt DENIES ADDITIONAL NEEDS, CALL LIGHT IN REACH.
--- NOTE | 2020-11-17 23:48 | NUR ---
ROUNDED ON pt. pt RESTING IN BED WITH EYES CLOSED, RR EVEN AND UNLABORED. NO DISTRESS NOTED, pt APPEARS COMFORTABLE. NEW BAG IV FLUIDS HUNG AND INFUSING AT 100MLS/HR, SITE WNL. pt MADE NPO AT THIS TIME. CALL LIGHT IN REACH.
--- NOTE | 2020-11-18 01:30 | NUR ---
pt AMBULATING IN HALLWAY, STEADY ON FEET.
--- NOTE | 2020-11-18 01:30 | NUR ---
ASSESSMENT COMPLETE, PRN NORCO GIVEN WITH SMALL SIP OF WATER (SEE EMAR). NO CHANGES OR CONCERNS TO ASSESSMENT. IV FLUIDS INFUSING, SITE REMAINS WNL. MOUTH SWABS PROVIDED FOR COMFORT. NO ADDITIONAL NEEDS, CALL LIGHT IN REACH.
--- NOTE | 2020-11-18 04:55 | NUR ---
pt RESTING IN BED WITH EYES CLOSED, RR EVEN AND UNLABORED. NO DISTRESS NOTED, CALL LIGHT IN REACH. IV FLUIDS INFUSING.
--- NOTE | 2020-11-18 06:12 | NUR ---
VS AND I&O'S COPMPLETE (SEE EMAR). PRN PAIN MEDICATION GIVEN (SEE EMAR). LAB IN ROOM FOR BLOOD DRAW. WATER PROVIDED TO RINSE OUT MOUTH, pt THEN SPIT IT OUT. NO FURTHER NEEDS, CALL LIGHT IN REACH.
--- NOTE | 2020-11-18 06:34 | NUR ---
PT in bathroom and crying out loud. discussed with head chargerdemetrio parker, PT given another 1mg dilaudid (see emar). dr barraza in room with PT, awaiting new orders. call light in reach.
--- NOTE | 2020-11-18 07:16 | NUR ---
Report from Bety Ingram RN. Patient up in bathroom at this time. Denies needs.
--- NOTE | 2020-11-18 08:16 | NUR ---
Assessment completed. Vital signs obtained. Sitting up in recliner at this time. AM medications given as prescribed, takes with small sip of water. Held lisinopril due to lower blood pressure. States he wants to go home because he has things to do and would like discharged if imaging looks ok. Denies other needs. Call light in reach. IV fluids restarted. Patient also ambulates in joshi multiple times this AM.
--- NOTE | 2020-11-18 09:43 | NUR ---
SURGICAL WIPEDOWN COMPLETED AND CLEAN GOWN ON PATIENT.
--- NOTE | 2020-11-18 11:07 | NUR ---
Taken to surgery in bed by surgical staff.
--- NOTE | 2020-11-18 14:00 | NUR ---
Attempted to see pt. x 2 today, but he has not returned from surgery.
--- NOTE | 2020-11-18 17:44 | NUR ---
11/18/20 1744 [place] 1709- PT ARRIVES TO PACU CONFUSED AND TRYING TO PULL OFF EVERYTHING. ATTEMPTED TO ORIENT THE PT THAT HE JUST HAD SURGERY AND HE IS ALL DONE. PT'S ARMS LOWERED TO KEEP HIM FROM PULLING HIS LINES BY THIS RN AND ANOTHER RN. RESP EVEN AND UNLABORED. OXYGEN SAT MID TO HIGH 90'S ON 6L VIA MASK. 1712- PT KEEPS SAYING, "LET ME UP". PT REMINDED HE JUST HAD SURGERY AND WE CAN NOT LET HIM OUT OF BED. PT REPOSITIONED AND HOB ELEVATED SO HE COULD BE SITTING UP. PT IS REACHING AT HIS FACE AND WANTING HIS OXYGEN MASK REMOVED. OXYGEN MASK REMOVED AND PT EDUCATED TO TAKE DEEP BREATHS. PT IS COMPLAINT WITH THIS AND RELAXES INTO THE BED. 1718- PT IS TRYING TO GRAB HIS NG TUBE AND IS YELLING, "LET ME UP". THIS RN AND ANOTHER RN ARE TRYING TO REORIENT THE PT AND HELP KEEP HIS ARMS DOWN SO HE DOES NOT PULL OUT HIS NG TUBE. PT IS INTERMITTENTLY CALM AND THEN TRYING TO SIT UP AND PULL OUT HIS NG TUBE. PT EDUCATED THAT HE HAS TO HAVE THE NG TUBE AND IF HE PULLS IT OUT IT WILL HAVE TO BE REPLACED. 1720- VITAL SIGNS COULD NOT BE OBTAINED THE PT IS FIGHTING BY TRYING TO SIT UP AND SWINGING HIS ARMS. 1722- PT REMAINS SWINGING HIS ARMS AND TRYING TO GET OUT OF BED. ERIN SANUDERS RN GOING TO GET VERSED FROM A VERBAL ORDER RECEIVED BY LO CUNNINGHAM CRNA. KIKA MON CALLED OVER HEAD. DR. FAUST AND UNA MCKEON, CHAR FILTER OPERATOR AT THE BEDSIDE TRYING TO CALM THE PT WELL. PT REACHES HIS ARM UP AND PULLS OUT HIS NG TUBE. 1723- 1 MG OF VERSED GIVEN BY ERIN SAUNDERS RN.
--- NOTE | 2020-11-18 18:59 | NUR ---
RETURNS TO ROOM FROM PACU. ALERT AND ORIENTED. O2 REMOVED SATS ARE 92-96% ON ROOM AIR. MIDLINE INCISION COVERED WITH DRESSING CLEAN, DRY AND INTACT. JIANG EMPTIED BY SURGERY STAFF.
--- NOTE | 2020-11-18 19:30 | NUR ---
SHIFT REPORT RECEIVED FROM DAYSHIFT RN DESIREE AT THIS TIME, pt ON RA SATING 88%, 1LNC IN PLACE AND QUICKLY RETURNED WNL AND SUSTAINING IN LOW 90'S. MIDLINE INCISION IN PLACE WITH ABD PAD AND TAP, SOME YELLOW/SEROUS SHADOWING NOTED, WILL MONITOR. ICE IN PLACE. pt DENIES ADDITIONAL NEEDS, CALL LIGHT IN REACH.
--- NOTE | 2020-11-18 20:00 | NUR ---
POST OP VSS, pt RESTING IN BED, AWOKE TO VOICE. DENIES NEEDS AT THIS TIME. CALL LIGHT IN REACH.
--- NOTE | 2020-11-18 20:30 | NUR ---
SPOKE TO DR FAUST VIA TELEPHONE REGARDING CLARIFICATION ON CENTRAL LINE. DISCUSSED FINDINGS OF CENTRAL LINE PLACEMENT, PER DR FAUST OKAY TO USE CENTRAL LINE FOR TPN. DR FAUST STATES, "IT'S IN RIGHT, HE JUST HAS A PNEUMOTHORAX". RESULTS FROM CHEST X-RAY TAKEN AT APPROX 1900 ON 11/18/[address] FAUST, NO SIGNS OF WORSENED PNEUMOTHORAX. TELEPHONE ORDERS READ BACK TO PUT IN SINGLE VIEW CHEXT X-RAY FOR 11/19/20 AT 0600. ALSO CLARIFIED ORDER FOR NG TUBE. pt PULLED NG TUBE OUT IN PACU PER SHIFT REPORT, PER DR FAUST, IT IS BENEFICIAL FOR pt TO HAVE NG TUBE AND INSTRUCTED THIS RN TO ATTEMPT TO PLACE NG TUBE BACK IN.
--- NOTE | 2020-11-18 21:00 | NUR ---
POST OP VSS, pt CONTINUES TO BE ON 1LNC. O2 SATS WNL. NO DISTRESS NOTED, CALL LIGHT IN REACH.
--- NOTE | 2020-11-18 22:00 | NUR ---
POST OP VSS, pt REMAINS ON 1LNC, pt ASSISTED WITH REPOSITIONING. SCD'S IN PLACE. NO ADDITIONAL NEEDS, CALL LIGHT IN REACH.
--- NOTE | 2020-11-18 23:30 | NUR ---
ASSESSMENT COMPLETE, SCHEDULED MEDS GIVEN (SEE EMAR). SHEET METAL DUCT INSTALLER HELPER TO BRING SCHEDULED IV DEPACON. IV SITE WNL, AND SALINE LOCKED. TPN HUNG AND INFUSING PER POLICY, VERIFIED WITH SECOND BELEM DUNLAP VIA DISTAL LUMEN. BRISK BLOOD RETURN NOTED. BRISK BLOOD RETURN NOTED TO THE MEDIAL AND PROXIMAL LUMEN AT THIS TIME. MULTIPLE ATTEMPTS TO PLACE NG TUBE UNSUCCESSFUL, pt CONTINUES TO PUSH PASSENGER COACH DRIVER AWAY AND PULL BACK HEAD. pt PREMEDICATED WITH 0.5MG DILAUDID AND 1MG ATIVAN. pt RELAXED PRIOR TO PROCEDURE AND JOKINGLY STATES, "ARE YOU GONNA GET ANY OF THE OTHER LADIES IN HERE AND HOLD ME DOWN BECAUSE I'M GONNA TURN INTO AN ASSASSIN". THERAPEUTIC COMMUNICATION PROVIDED PRIOR TO PROCEDURE, ASSESSMENT CLINICIANBELEM DUNLAP IN ROOM AND ASSISTED AND WAS ALSO UNSUCCESSFUL. pt IS GETTING MORE ANXIOUS, WILL ALLOW pt TO REST AND CALL SHEET METAL DUCT INSTALLER HELPER TO TRY NG PLACEMENT.
--- NOTE | 2020-11-18 23:34 | NUR ---
JIANG EMPTIED, 300ccs OF CLEAR, YELLOW URINE. JIANG CATH UPDATED IN I&O VIA ORDER.
--- NOTE | 2020-11-18 23:48 | NUR ---
ATTEMPTED NG TUBE INSERTION. PT REPEATEDLY PULLS HIS HEAD BACK AND PULLS TUBING AWAY SOON IT REACHES THE EPIGLOTTIS AREA. PT INSTRUCTED TO KEEP HIS HEAD STILL AND KEEP SWALLOWING BUT HE IS UNABLE TO TOLERATE PLACEMENT. PRIMARY RN SJ ATTEMPTED PLACEMENT FIRST AND NOW HAS CALLED FLOW SPECIALIST TO PLACE NG TUBE.
--- NOTE | 2020-11-19 | NUR ---
PATIENT CALLING OUT FREQUENTLY. REPORTS PAIN. IS MORE DROWSEY, LIKELY DUE TO SEDATION EFFECT OF MEDICATION. ENOCURAGED PATIENT TO SLEEP, WHICH HE REPLIES "I WOULD SLEEP IF I COULD RELAX". PATIENT IS RESTLESS AND HAS SPILLED HIS WATER SEVERAL TIMES. REMOVED HIS BLANKETS. PULLED AT CENTRAL LINES AND TAPE FROM HIS CHEST TUBE DRESSING. PRN MEDS PROVIDED WITH PAIN MEDS. PRECEDEX TITRATED TO 0.6 MCG/KG/MIN. PATIENT CONTINUES TO BE RESTLESS.
--- NOTE | 2020-11-19 00:10 | NUR ---
CALLED TO FLOOR BY HANANE PATRICIA. PER STAFF, NG PLACEMENT HAS BEEN ATTEMPTED MULTIPLE TIMES, PT PULLING HEAD AWAY FROM STAFF AND PUSHING STAFF HANDS AWAY. THIS RN INTO ROOM TO SPEAK WITH PT. PT STATES HE IS ANXIOUS ABOUT THE PROCEDURE, STATES "I AM AFRAID IT'S GOING TO BACK UP IN MY THROAT AND GO IN THE WRONG PLACE." PT DENIES NAUSEA, BUT COMPLAINS ABOUT GENERALIZED PAIN. PT STATES "I JUST DON'T KNOW WHERE ANYTHING IS AT ANYMORE" WHILE RUNNING HIS HANDS OVER HIS CHEST AND ABD. PT APPEARS DROWSY. DISCUSS THE NEED FOR NG PLACEMENT AND REASSURED PT, BUT PT REMAINS ANXIOUS. DISCUSSED SITUATION WITH GERMÁN ERICKSON RN AND HANANE PATRICIA. PT HAS BEEN NEDICATED FOR PAIN AND ANXIETY WITH NG PLACEMENT ATTEMPTS. ADVISED TO LET PATIENT REST AT THIS TIME TO SEE IF ANXIETY SUBSIDES AND DISCUSS POSSIBLE PLACEMENT AGAIN DURING THIS SHIFT.
--- NOTE | 2020-11-19 00:30 | NUR ---
pt FOUND RESTING IN BED WITH EYES CLOSED, RR WNL. CPOX IN PLACE WITH 1LNC . NO DISTRESS NOTED, WILL ALLOW pt TO REST AND REEVALUATE NG PLACEMENT. DISCUSSED WITH B2B APPOINTMENT SETTER ROSELYN. pt DENIES NAUSEA AT THIS TIME, NPO. CALL LIGHT IN REACH.
--- NOTE | 2020-11-19 01:21 | NUR ---
IN ROOM TO ROUND ON pt, pt ABRUPTLY AWOKE AND BEGAN MOANING. REPORTS GENERALIZED 9/10 ABD PAIN, DENIES NAUSEA. REQUESTING PAIN MEDICATION, PRN DILAUDID GIVEN (SEE EMAR). VSS, 1LNC REMAINS IN PLACE. pt REPORTS THE 9/10 PAIN, BUT QUICKLY CLOSES EYES AND BEGINS TO SLEEP. IV SITE WNL AND SALINE LOCKED. MEDIAL AND PROXIMAL LUMEN SALINE FLUSHED AND HEP LOCKED AT THIS TIME PER POLICY. TPN INFUSING VIA MD ORDERS TO DISTAL LUMEN. DRESSING INTACT. pT JOKINGLY STAES, "IF YOU LEAVE ANY SYRINGES IN THE BED AND I FIND THEM LATER I'M GONNA SAVE THEM AND SNIFF THEM LATER". pt FREQUENTLY ALTERNATES BETWEEN JOKING AND MOANING IN BED. WILL MONITOR. pt DENIES ADDITIONAL NEEDS. CALL LIGHT IN REACH.
--- NOTE | 2020-11-19 02:12 | NUR ---
pt RESTING QUIETLY IN BE DWITH EYES CLOSED, 1LNC. CPOX IN PLACE, O2 SAT WNL, 91%. NO DISTRESS NOTED, CALL LIGHT IN REACH.
--- NOTE | 2020-11-19 03:00 | NUR ---
THIS RN IN ROOM TO ANSWER CALL LIGHT, pt STATES, "DID THE PROCEDURE WORK?". pt ORINETED TO TIME AND REMINDED THAT HE WAS REFUSING US TO ADVANCE NG TUBE EARLIER IN SHIFT AND STAFF WAS GOING TO TRY AGAIN AFTER HE RESTED. pt AGAIN EDUCATED ON BENEFITS TO NG TUBE, pt STATES, "I'LL LET YOU TRY ONE MORE TIME, BUT THEY BETTER KNOW WHAT THEY'RE DOING". DISCUSSED EARLIER IN SHIFT WITH BAIT MAN AND ATHLETIC MONITOR THAT WE WOULD TRY AGAIN AFTER pt SETTLES DOWN AND RESTS HE HAS DENIED NAUSEA ALL SHIFT. ATHLETIC MONITOR CALLED AT 0315 AND UPDATED HER ON PLAN OF ACTION. ATHLETIC MONITOR ARGREES TO COME AT NEXT AVAILABILITY AND ATTEMPT NG PLACEMENT. pt ASSISTED WITH REPOSITIONING IN BED. NO FURTHER NEEDS, CALL LIGHT IN REACH.
--- NOTE | 2020-11-19 04:55 | NUR ---
IN WITH RN TO BOOST PT UP IN BED, FLOATED AT HIPS
--- NOTE | 2020-11-19 04:55 | NUR ---
ASSESSMENT COMPLETE, VSS. PT ON 1.5LNC. NO CHANGES TO LUNG SOUNDS, CPOX IN PLACE. pt AWAKE AND WHEN THIS RN ENTERED ROOM PT IMMEDIATELY BEGAN GROANING AND STATES, "EVERYONE WALKS BY AND NOBODY COMES IN TO SEE ME". PT EDUCATED THAT THIS RN WAS IN ANOTHER ROOM AND CAME ONCE AVAILABLE. PRN PAIN MEDICATION GIVEN (SEE EMAR). TPN CONTINUES TO INFUSE PER MD ORDERS, DRESSING INTACT. PT REPOSITIONED IN BED WITH HELP FROM SURVEY PROJECT MANAGER, BILATERAL HIPS FLOATED. PT SHAKING HEAD AND STATES, "IT HELPS MOVE THE PAIN AWAY FROM MY HEAD". SCD'S IN PLACE. NO CHANGES TO ABD DRESSING. WILL MONITOR. CALL LIGHT IN REACH.
--- NOTE | 2020-11-19 05:35 | NUR ---
PER TPN ORDERS, ORDERS FOR 0600 DAILY PHOSPHATE ORDER FOR NEXT 5 DAYS PLACED BY THIS RN.
--- NOTE | 2020-11-19 05:41 | NUR ---
DISCUSSED PT'S STATUS WITH SERVER ASSISTANT, PT CONTINUES TO DENY NAUSEA. WILL WAIT TO ATTEMPT NG TUBE AND DISCUSS SHIFT WITH DR FAUST WHEN HE ARRIVES.
--- NOTE | 2020-11-19 07:10 | NUR ---
Report from Bety Ingram RN. Patient resting in bed. Opens eyes to voice. Agitated about wanting something to drink. States he feels like he is dying, he is so thirsty. Assessment completed. Eddy remains in place. Shadowing to dressing noted. Patient remains on O2 per nasal canula. TPN infusing at this time. Respirations even and unlabored. Call light in reach, bed rails up X2.
--- NOTE | 2020-11-19 07:46 | NUR ---
DR FAUST MADE AWARE OF INABILITY TO PLACE NG TUBE. 0600 CHEST X-RAY RESULTS STILL PENDING. NO NEW ORDERS.
--- NOTE | 2020-11-19 07:57 | OR ---
[facility] [address] [place], [place] [address] Signed DATE OF OPERATION: 11/18/2020 SURGEON: Nicolas Faust MD PREOPERATIVE DIAGNOSES: 1. Small bowel obstruction, status post right colectomy. 2. Acute malnutrition. POSTOPERATIVE DIAGNOSES: 1. Small-bowel obstruction, had anastomosis secondary to severe inflammatory response. 2. Acute malnutrition. PROCEDURE: 1. Small bowel resection. 2. Partial colectomy. 3. End-to-end ileocolonic anastomosis, hand-sewn in two layers. 4. Placement of left subclavian triple-lumen catheter. ESTIMATED BLOOD LOSS: 150 mL. FINDINGS: Reagan had tremendous inflammatory response right at the anastomosis with the mesentery of the bowel and the omentum. It kinked our standard stapled isty-yp-peku anastomosis causing a very high-grade bowel obstruction. INDICATIONS: Reagan is a 55-year-old gentleman who came initially for his colonoscopy. He had a lesion in the cecum that was too large to resect with the endoscope. Therefore, he was taken to the operating room on 11/10/2020 for a standard right colectomy. 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 We performed our standard right colectomy with a stapled oskk-vr-gydc anastomosis. Unfortunately, he developed abdominal distention, some nausea and even some vomiting postoperatively. However, he was still passing small amounts of flatus and liquid stool. Abdominal x-ray showed the dilated small bowel but with possible air in his transverse colon. We followed that up with a small-bowel followthrough the next day and we could see the small bowel that was dilated all the way down pretty much to the anastomosis almost. There is probably a column of fluid prior to the anastomosis, but given his previous intraoperative findings of course that is the most likely location for the obstruction. I had explained to Reagan. We had taken him back to the operating Electronically Signed By: NICOLAS FAUST MD 11/19/20 0757 PATIENT NAME: BARBY MATTA OPERATIVE REPORT DATE OF : 63 REPORT #: [id number] PHYSICIAN: NICOLAS FAUST MD PCP: NANCIE HOSKINS MD REPORT IS CONFIDENTIAL AND NOT TO BE RELEASED WITHOUT AUTHORIZATION [address] [address] Signed room to evaluate that area and more than likely after take that down and reassess whether we will do an end-to-end anastomosis or linear pwtc-lu-tlzm anastomosis. I reviewed with Reagan that the nature of that surgery very similar to what he has already been through a week ago. He understands there is risk including, but not limited to bleeding, infection, scarring, change in contour of the skin, damage to bowel, anastomotic leak, incisional hernias and other unforeseen comorbidities. In addition, he is in need of ongoing close monitoring as well as nutritional support. Consequently, I explained to Reagan we will be placing a central venous catheter while he was asleep. I described to him central venous catheter. He understands the risks to placing a central venous catheter, including, but not limited to bleeding, infection, scarring, change in contour of the skin, pneumothorax requiring chest tube placement, as well as catheter embolization requiring retrieval. He had expressed understanding and wished to proceed. DESCRIPTION OF PROCEDURE: I met with Reagan in the preop area. After answering his questions, we took him to the operating room where he was placed in a supine position under general endotracheal tube anesthesia. He was given preoperative antibiotics. He was already on subcutaneous Lovenox. He had SCDs in place. A Eddy catheter was inserted with return of clear yellow urine. All the mile were removed and his abdomen was then prepped and draped in usual sterile fashion. All the sutures were removed sharply with the help of a straight Edilia. The abdomen was entered and the omentum was from the fascia with finger-fracture technique. The omentum was elevated and underneath of course all his small bowel was pink and healthy but quite dilated up to a 5 cm in diameter. We had to extend the incision cephalad and towards the pubic bone. We would evacuate all the small bowel out of the abdomen. That allowed us to better evaluate the area of anastomosis. He had an unbelievable amount of inflammatory response there with his omentum and the mesentery as well including the small and large bowel. The small bowel had been drawn up into the inflammatory response and it caused kinking of that anastomosis in the crotch despite our usual technique. Consequently, we decided to resect this portion of the small bowel as well as the proximal transverse colon. It took a few minutes to work our way down and separate the gastrocolic omentum away from the underlying mesentery of the proximal transverse colon. We divided the proximal transverse colon with the linear stapler and the mesocolon was divided with Pean clamps and 0 Vicryl ties. We then divided the small bowel with the help of a linear stapler and divided the mesentery to the small bowel with Pean clamps and 0 Vicryl ties. The entire specimen was then passed off the field. We had to open the end of the small bowel and we had to run the small bowel from the ligament of Treitz all the way back down to the terminal ileum to evacuate all the air in the liquid stool into a catch basin. After this, we decided to perform an end-to-end anastomosis. Initially, we performed the anastomosis with standard technique with Vicryl and silk suture. However, there was just enough that the anastomosis felt to be a little tight, Electronically Signed By: NICOLAS FAUST MD 11/19/20 0757 PATIENT NAME: BARBY MATTA OPERATIVE REPORT DATE OF : 63 REPORT #: [id number] PHYSICIAN: NICOLAS FAUST MD PCP: NANCIE HOSKINS MD REPORT IS CONFIDENTIAL AND NOT TO BE RELEASED WITHOUT AUTHORIZATION [facility] [address] [place], [place] [address] Signed particularly with the edema of the small bowel. Consequently, we took all that suture down, freshened up the edges with the Metzenbaum scissors, so that both the terminal ileum and the colon were bleeding quite nicely. We then used a standard fishmouth technique on the antimesenteric side of the small bowel to open that up about another cm or so. We then brought the bowel back together in an end-to-end fashion with a standard interrupted two layer technique using Vicryl and silk sutures. This improved the width of the anastomosis significantly. The rent in the mesentery was brought back together with running 0 Vicryl sutures. The small bowel had been returned to the abdomen after being irrigated and suctioned out until clear. We brought the omentum back down over the bowel and we closed the midline fascia with interrupted atcqrl-cr-[id number] #1 PDS sutures. We injected local anesthetic into his abdominal wall. The dermis was reapproximated with interrupted 3-0 subcuticular Monocryl sutures. The mile were used to reapproximate the skin. Dry gauze and tape was then applied. After this, Reagan was placed into the supine position. I had gone out and completely rescrubbed and regown. His entire neck and chest wall were prepped and draped in the usual sterile fashion. I accessed his left subclavian vein on the 1st pass of the needle and the wire was able to feed without any resistance whatsoever. The track was dilated and the dilator curved in the appropriate direction. The catheter was inserted up to about 20 cm and each port was able to draw and flush quite readily. The catheter was then held onto his chest wall with interrupted silk sutures. Plastic occlusive dressing was applied per nursing staff. After this, Reagan had undergone bilateral subcostal abdominal wall blocks by our nurse abrasive grader helper using the ultrasound. He was weaned from his anesthesia, extubated in the OR, and taken to the recovery room in stable condition. Currently, his portable chest x-ray is pending. Nicolas Faust MD ALB/MODL /[id number] cc: Nancie Hoskins MD Copies: Electronically Signed By: NICOLAS FAUST MD 11/19/20 0757 PATIENT NAME: BARBY MATTA OPERATIVE REPORT DATE OF : 63 REPORT #: [id number] PHYSICIAN: NICOLAS FAUST MD PCP: NANCIE HOSKINS MD REPORT IS CONFIDENTIAL AND NOT TO BE RELEASED WITHOUT AUTHORIZATION [address], [place] [address] Signed ~ Electronically Signed By: NICOLAS FAUST MD 11/19/20 0757 PATIENT NAME: BARBY MATTA [place] OPERATIVE REPORT DATE OF : 63 REPORT #: [id number] PHYSICIAN: NICOLAS FAUST MD PCP: NANCIE HOSKINS MD REPORT IS CONFIDENTIAL AND NOT TO BE RELEASED WITHOUT AUTHORIZATION
--- NOTE | 2020-11-19 09:35 | NUR ---
AM MEDICATIONS INITIATED PRESCRIBED. PATIENT REQUESTING JIANG BE REMOVED.
--- NOTE | 2020-11-19 11:07 | NUR ---
11/19/20 1107 Chandrika Mcintyre 1100: PT ARRIVES TO PACU FROM OR ON 8 L O2 VIA MASK. PT RR EVEN AND UNLABORED. PT DOES NOT AROUSE WITH VERBAL OR TACTILE STIMULATION. BELEM FRANKS AT BEDSIDE ASSISTING WITH CHEST TUBE AND LINES.
--- NOTE | 2020-11-19 12:37 | NUR ---
REPORT TO Maura SAUCEDO RN.
--- NOTE | 2020-11-19 12:45 | NUR ---
report recived JESSICA CLAMSHELL OPERATOR. UPON ADMIT TO CCU PATIENT IS AWAKE ALERT AND ORIENTED. IS ON O2 AT 2 L O2 SAT 88. LEFT LATERAL CHEST TUBE NOT FUNCTIONING RIGHT AT THIS EMA. IS TO -20 CM SUCTION. AIR LEAK NOTED WHEN COUGHING. NO TITLING NOTE WITH RESP PHASE. 02 INCREASED TO 6 L NC O2 SATS 90 WITH INCREASED WORK OF BREATHING NOTED. SMALL AMOUNT OF BLOOED DRAINAGE NOTED IN THORAPLEX.IN DRANIAGE NOTED IN TUBING OF CHEST TUBE.NOT BREATH SOUNDS HEARD IN UPPER LEFT CHEST, PATIENT C/O INCREASED LEFT SIDE CHEST PAIN.
--- NOTE | 2020-11-19 13:00 | NUR ---
PORTABLE CXR DONE.
--- NOTE | 2020-11-19 13:10 | NUR ---
DR. FAUST NOTIFIED OF PATIENT STATUS.
--- NOTE | 2020-11-19 13:30 | NUR ---
DR. GOMEZ NOTIFIED DR. FAUST OF CXR RESULTS. DR. FAUST HERE TO REPOSITION CHEST TUBE/ REPLACE CHEST TUBE. PATIENT FACE,NECK, LEFT ARM WITH INCREASED SWELLING. VOICE CHANGE NOTED. DR. FAUST AWARE.
--- NOTE | 2020-11-19 13:38 | NUR ---
DILAUD 1 MG IV GIVEN FOR ABD PAIN AND RESP COMFORT.
--- NOTE | 2020-11-19 14:00 | NUR ---
INCREASED SQ EMPHYESMA NOTED IN FACE, NECK, ARMS, CHEST. ANXIOUS AT TIMES.
--- NOTE | 2020-11-19 14:30 | NUR ---
C/O INCREASED SHORTNESS OF BREATH. SITTING STRAIGHT UP IN BED.
--- NOTE | 2020-11-19 15:12 | NUR ---
DILAUDID 1 MG IV REPEATED PATIENT STATES HE CONTINUES TO FEEL SHORT OF BREATH. DR. FAUST AWARE. DR. FAUST SAID HE TALKED WITH [facility] MD THEY THOUGHT THE SQ EMPHASEMA WOULD RESOLVE, DIDN'T THINK AIRWAY WOULD OCCLUDE. BREATHING. BREATHING EASIER AFTER DILAUDID.
--- NOTE | 2020-11-19 16:00 | NUR ---
ASSESSMENT DONE. CONTINUES WITH SQ EMPHYSEMA IN FACE, NECK, ARMS, EYES. EYES REMAIN OPEN. COOPERATIVE.
--- NOTE | 2020-11-19 16:30 | NUR ---
RESTING WITH HOB ELEVATED. DENEIS SHORTNESS OF BREATH WHEN RESTING WITH HOB ELEVATED.
--- NOTE | 2020-11-19 16:55 | NUR ---
PATIENT SITTING UP IN THE BED ON NC. THIS RN IN TO CHECK IN WITH PATIENT. PATIENT STATES HE IS DOING OKAY RIGHT NOW. HE DOES REPORT STILL FEELING SWOLLEN IN THE NECK, NOT MUCH CHANGE FROM PRIOR REPORT. PATIENT STATE PAIN IS GOING UP A LITTLE, BUT DENIES PRN PAIN MEDICATION AT THIS TIME. WILL CONTINUE TO CLOSELY MONTIOR.
--- NOTE | 2020-11-19 17:10 | NUR ---
PATIENT CALLED STAFF, MARTHA PATRICIA ENTERED THE ROOM AND NOTED TO BE IN RESPIRATORY DISTRESS. MARTHA PATRICIA CALLED A RAPID RESPONSE. SHEKHAR PATRICIA AND THIS RN AT THE BEDSIDE. PATIENTS SPO2 88% PLACED ON OXYMASK AT 10L WITH SPO2 LOW 90'S INCREASED OXYGEN TO 12L OXYMASK WITH SPO2 98%. ENCOURAGD PATIENT TO RELAX AND TRY AND TAKE SLOW DEEP BREATHS. PATIENT NOTED TO HAVE PURPLE LIPS AND TIP OF NOSE. CHRISTIANNE NOTIFIED BY SHEKHAR PATRICIA. MD DOBBINS HERE. X-RAY ORDERED.
--- NOTE | 2020-11-19 17:21 | NUR ---
DR. FAUST HERE NOW. CXR HAS BEEN REPEATED NOW.
--- NOTE | 2020-11-19 17:30 | NUR ---
Lubna JJ REFRIGERATION INSULATOR HERE TO GIVE PATIENT PRECEDEX 30 MCG IV.
--- NOTE | 2020-11-19 17:39 | OR ---
[facility] [address] [place], [place] [address] Signed DATE OF OPERATION: 11/19/2020 SURGEON: Nicolas Faust MD PREOPERATIVE DIAGNOSES: 1. Left iatrogenic pneumothorax following left subclavian triple-lumen catheter placement. 2. Previous tetracycline pleurodesis, left chest, age 19 for his spontaneous pneumothorax. POSTOPERATIVE DIAGNOSES: 1. Left iatrogenic pneumothorax following left subclavian triple-lumen catheter placement. 2. Previous tetracycline pleurodesis, left chest, age 19 for his spontaneous pneumothorax. PROCEDURE: Placement of 32-Togolese left chest tube. ESTIMATED BLOOD LOSS: None. INDICATIONS: Barby is a 55-year-old gentleman, who presented electively for lesion in his cecum. He had a right colectomy about a week ago. Pathology came back as a tubulovillous adenomatous polyp without dysplasia and/or cancer. Unfortunately, he had a small bowel obstruction associated with the anastomosis. He had a standard stapled htct-lq-glkf anastomosis; however, he had a tremendous inflammatory response in the mesentery and in the omentum and it kinked via small bowel, and we had to take him back to surgery yesterday to resect that area and sew the small bowel end-to-end to the transverse colon. He has been without nutrition now for a week. We decided to place a left subclavian triple-lumen catheter. We entered his vein on the first pass of the needle, yet he suffered a pneumothorax. A followup chest x-ray yesterday showed no increase in the pneumothorax; however, this morning it had increased in size. I could tell in the room he was taking shallow breaths and at the end of each sentence he was coughing consistent with a pneumothorax. He told me about a spontaneous pneumothorax when he was age 19. He remembers the pain from the tetracycline pleurodesis. He thought it was on the right. We looked in that area and could not find an incision. When we got in the operating room and shaved off the hair from his chest, we found his left inframammary scar from his pleurodesis when he was age 19. I thought it was best we take him to the Electronically Signed By: NICOLAS FAUST MD 11/19/20 1739 PATIENT NAME: BARBY MATTA OPERATIVE REPORT DATE OF : 63 REPORT #: [id number] PHYSICIAN: NICOLAS FAUST MD PCP: LENNY ROBLES MD REPORT IS CONFIDENTIAL AND NOT TO BE RELEASED WITHOUT AUTHORIZATION [facility] [address] [place] [id number] Signed operating room to place a chest tube. In addition, he pulled out the NG tube in our recovery room yesterday. It was quite difficult to place the NG tube, even when he was intubated and asleep. We tried again with two different nurses while he was awake and it was unsuccessful. Consequently, we wanted to try again while he was sedated for his chest tube placement. He understands chest tubes obviously quite well. There is risk including, but not limited to bleeding, infection, scarring, change in contour of the skin as well as inability to heal the pneumothorax, requiring additional treatments. He had expressed understanding and wished to proceed. DESCRIPTION OF PROCEDURE: Barby was taken down to the operating room and placed in the supine semi-recumbent position under monitored anesthesia care per nurse associate professor of church music. His left chest wall was prepped and draped in the usual sterile fashion. I made the incision in his inframammary crease just lateral to his previous scar after injecting copious amounts of local anesthetic. We dissected out with the pean clamp and up to ribs. I then injected local anesthetic into the intercostal space. The chest was entered without difficulty with pean clamp. With my index finger inserted, I could feel the lung, but immediately had a large ivy of air and immediately his respiratory effort improved and his tachypnea ceased. We used a 32-Togolese chest tube, but as we placed it in, he has a cavity there that limited the advancement of the chest tube. We sutured in place and took an x-ray and sure enough the last hole was right at the rib cage. Consequently, we went ahead and took the entire field down and re-prepped and draped. That chest tube was taken out and a new 32-Togolese chest tube was utilized. I cut about 2 inches of the tip off that chest tube and allowed the last iris on the chest tube to be within the chest cavity. Again, he has a moderate pneumothorax with each breath that he takes. That was sutured in place with 2-0 silk sutures. We hooked him up again he has a moderate pneumothorax. But, again his breathing was quite unlabored at that point. Dry dressing and tape were then applied. The entire field was then taken down. We tried three different times to place his NG tube with him sedated without success. The chest x-ray was taken and on this occasion, the last hole in the chest tube was well within the chest cavity, and certainly no leak around the site on his chest wall. After this, Barby was transferred over to his hospital bed and taken into recovery room in stable condition. Nicolas Faust MD ALB/MODL /[id number] Electronically Signed By: NICOLAS FAUST MD 11/19/20 1739 PATIENT NAME: BARBY MATTA OPERATIVE REPORT DATE OF : 63 REPORT #: [id number] PHYSICIAN: NICOLAS FAUST MD PCP: LENNY ROBLES MD REPORT IS CONFIDENTIAL AND NOT TO BE RELEASED WITHOUT AUTHORIZATION [address] [address] Signed cc: MD Nicolas Darby MD Copies: NICOLAS FAUST MD ~ Electronically Signed By: NICOLAS FAUST MD 11/19/20 1739 PATIENT NAME: BARBY MATTA OPERATIVE REPORT DATE OF : 63 REPORT #: [id number] PHYSICIAN: NICOLAS FAUST MD PCP: LENNY ROBLES MD REPORT IS CONFIDENTIAL AND NOT TO BE RELEASED WITHOUT AUTHORIZATION
--- NOTE | 2020-11-19 18:44 | NUR ---
RELAXED, PRECEDEX GTT INFUSING AT 0.2 MCG/KG/MIN. NO FUTHER CHANGES.
--- NOTE | 2020-11-19 19:30 | NUR ---
SHIFT REPORT RECEIVED. PATIENT SITTING UPRIGHT IN BED. WATCHING TV. VS STABLE. CALL LIGHT IN HAND.
--- NOTE | 2020-11-19 20:00 | NUR ---
EVENING MEDS PROVIDED. PATIENT REQUEST TO GET UP TO BSC, FEELS IF HE COULD HAVE A BM. ASSISTED PATIENT TO STAND AT BEDSIDE WITH FWW. PATIENT IS WEAK BUT ABLE TO STAND AND PIVOT WITH CORD MANAGEMENT HELP FROM STAFF. PATIENT TOLERATED TRANSFER WELL. WHEN RETURNING TO THE BED THE PATIENT STARTED TO COUGH AND HAD INCREASED PAIN. PATIENT IS ANXIOUS AND RESTLESS. NOT FOLLOWING INSTRUCTIONS. ENCOURAGED PATIENT TO DEEP BREATH, PATIENT FLAILING AND BREATHING AT A RATE OF 40 BPM OR HIGHER. O2 SAT 96% ON 6L NC. PRN DILAUDID PROVIDED PRIOR TO TRANSFER. PRN ATIVAN GIVEN WHEN PATIENT UNABLE TO SETTLE BACK DOWN. DRESSING CHANGED ON CHEST TUBE DUE TO LARGE AMOUNT OF DRAINAGE. AIR LEAK NOTED IN SYSTEM. UNABLE TO FIX LEAK. SYSTEM IS DRAINING ABOUT 40MLS SEROSANGUINEOUS FLUID. CREPITUS NOTED IN UPPER TORSO, NECK AND FACE. PATIENT FEELS IT IS DIFFICULT TO TALK AND BREATHING. SPEECH IS SOMEWHAT DISTORTED. LUNG SOUNDS ARE HEARD THROUGHOUT LUNG FEILDS, COARSE ON THE LEFT SIDE. DRY COUGH NOTED. PATIENT RINSING MOUTH AND SPITTING INTO CUP. NO NAUSEA. HIGH PITCHED BOWEL SOUNDS. ABD MODERATELY DISTENDED AND TENDER. MIDLINE WELL APPROXIMATED AND COVERED. JIANG IN PLACE. JIANG CARE DONE. CENTRAL LINE FLUSHED AND RETURNED BLOOD IN PORTS NOT INFUSING TPN. TPN AND LIPIDS INFUSING PER ORDER. SITE APPEARS WNL.
--- NOTE | 2020-11-19 21:00 | NUR ---
PATIENT IS ANXIOUS, PICKING AT HIS BLANKETS AND RESTLESS. TIDALING NOTED IN CHEST TUBE SYSTEM. VS STABLE. ENCOURAGED PATIENT TO REST.
--- NOTE | 2020-11-19 22:00 | NUR ---
PATIENT CONTINUES TO BE RESTLESS AND REPORTING PAIN. PATIENT MOVING AROUND IN BED, SITTING UP AND ROCKING BACK AND FORTH. PRN DILAUDID PROVIDED. PRECEDEX TITRATED TO 0.4 MCGG/KG/MIN. ENCOURAGED PATIENT TO SIT STILL.
--- NOTE | 2020-11-20 00:51 | NUR ---
PATIENT IS ANGRY WITH STAFF AND DEMANDING DAY SHIFT RNSHEKHAR BE CALLED. PATIENT NOT MAKING MUCH SENSE. STATING NO ONE IS GIVING HIM MEDICATIONS OR TREATMENTS. REMINDED PATIENT OF TREATMENT PLAN AND PRN MEDS. SECURITY IN ROOM FOR DE-ESCALATION. PRN PAIN MEDS AND ATIVAN PROVIDED.
--- NOTE | 2020-11-20 01:23 | NUR ---
DISCUSSED PATIENT'S CURRENT MENTAL STATES, DECREASED BREATH SOUNDS AND RESPIRTORY DISTRESS. ABG AND CHEST XRAY ORDERS, MD VERBALIZED INTENTION TO TRANSFER PATIENT.
--- NOTE | 2020-11-20 02:03 | NUR ---
0149-SPOKE WITH [employer] TO ARRANGE TRANSPORT TO [facility]. CHECKING WEATHER. 0150-SPOKE WITH BENJI AT [facility], VERIFIED BED PLACEMENT AND NUMBER FOR REPORT. 0155-SPOKE WITH [employer], CREW SHOULD BE HERE IN 21 MINUTES, FIXED WING COMING FROM [facility] WITH ETA OF 0228.
--- NOTE | 2020-11-20 02:07 | NUR ---
CALLED SUDHA ESPINOZA FOR INTUBATION PER DR FAUST REQUEST
--- NOTE | 2020-11-20 03:36 | NUR ---
0200 PATIENT IN RESPIRTORY DISTRESS. CONTINUES TO TRY TO EXIT THE BED. WILL NOT KEEP OXYMASK IN PLACE. HR ELEVATED. SECURITY, RT, CLINICAL LAB CLERK AT BEDSIDE. ON THE UNIT. CNRA NOT YET ARRIVED, PATIENT CRITICAL. ER DOCTOR CALLED FOR EMERGENCY INTUBATION. 0229 ER DOCTOR IN ROOM. VERBAL ORDERS FOR 150 MG KETAMINE AND 150 MG SUCC, PUSHED IN CENTRAL LINE AND FLUSHED. INTUBATION DONE, 8.0 TUBE 24 CM AT THE LIP. RT PLACED PATIENT ON VENT. ETCO2 WNL. VENT SETTINGS PER SUDHA ESPINOZA. 0245 REPORT GIVEN TO [employer]. ASSISTED IN MOVING PATIENT TO STRETCHER. PATIENT CONTINUED ON TPN. PROPOFOL STARTED BY [facility] FOR TRANSFER. 0310 PATIENT TRANSFERED OUT
--- NOTE | 2020-11-24 14:29 | PATH ---
[facility] [address], [place] [address] Signed SPECIMEN(S): A TERMINAL ILEUM SPECIMEN(S): B ADDITIONAL TERMINAL ILEUM SPECIMEN SOURCE: A. TERMINAL ILEUM B. ADDITIONAL TERMINAL ILEUM CLINICAL HISTORY: Right colectomy; terminal ileum proximal transverse anastomosis. FINAL PATHOLOGIC DIAGNOSIS: A. Terminal ileum: - Portion of small bowel and colon with evidence of prior Ileocolonic anastomosis. - Incidental inflammatory polyp of the colon. - Portions of benign small bowel. B. Additional terminal ileum: - Benign small bowel with perienteric fibrosis and mild chronic inflammation. - Negative for atypical epithelial features. - See comment COMMENT: The small bowel contain focal adarsh enteric fibrosis with a bland appearance. Given the evidence of previous surgery at this site, this may be reactive secondary to this history. Clinical correlation is requested. JVR:one[place]:C2NR MICROSCOPIC EXAMINATION: Histologic sections of all submitted blocks are examined by light microscopy. These findings, together with the gross examination, support the pathologic diagnosis. GROSS DESCRIPTION: Two specimens are received in two containers, labeled "LB." A. The specimen, labeled "LB, terminal ileum," is received in formalin and consists of previously opened terminal ileum and large bowel. Specimen measures 14 x 7.5 x 4.0 cm. The terminal ileum measures 9.5 cm in length and 3.2 cm in inner circumference. The large bowel measures 8 cm in length and 5.8 cm in inner circumference. Specimen shows attached yellow-carrillo, focally congested PATIENT NAME: PAXTONBARBY PATHOLOGY DATE OF : 63 REPORT #: [id number] PHYSICIAN: CÉSAR RIVERA PCP: LENNY ROBLES MD REPORT IS CONFIDENTIAL AND NOT TO BE RELEASED WITHOUT AUTHORIZATION [facility] [address], [place] [address] Signed fibroadipose tissue that measures 21 x 15.5 x 2.2 cm. The serosal surface is pink-carrillo, smooth. The mucosal tissue in terminal ileum and large bowel is pink-carrillo, corrugated. The large bowel shows one polyp that measures 0.5 cm in greatest dimension. The terminal ileum and large bowel are previously surgically connected. Ileocecal valve is not present. Connection between terminal ileum and large bowel shows yellow-carrillo, firm, linear scar tissue. Cassette Summary: (A1) Proximal resection margin, shave (A2) Distal resection margin, shave (A3) Large bowel polyp and terminal ileal and large bowel connection site (A4) Large bowel and terminal ileum, random sections B. The specimen, labeled "LB, additional terminal ileum," is received in formalin and consists of unoriented, previously opened piece of small bowel that measures 5.5 cm in length and 3.3 cm in inner circumference. With attached up to 3.0 cm, yellow, lobulated, focally congested fibroadipose tissue. Serosal surface is pink-carrillo, smooth. The mucosa is a pink-carrillo, corrugated. No masses or abnormalities are grossly identified. Cassette Summary: (B1-B2) Resection margins, shave (B3) Small bowel, random in store representative section JS (under the direct supervision of a pathologist) The Gross Description was prepared using a voice recognition system. The report was reviewed for accuracy; however, sound-alike word errors, addition and/or deletions may occur. If there is any question about this report, please contact Client Services. PERFORMING LABORATORY: The technical component was performed by [facility], [address] [place] [address], [place] [address] ([employer]: Alicia Rodriguez MD; CLIA# [id number]). Professional interpretation was performed by [facility], [facility], [address] [place] [address]., [place] [address]. Diagnostician: Romain Frausto MD Pathologist Electronically Signed 11/24/2020 PATIENT NAME: BARBY MATTA PATHOLOGY DATE OF : 63 REPORT #: [id number] PHYSICIAN: CÉSAR PATHOLOGY PCP: LENNY ROBLES MD REPORT IS CONFIDENTIAL AND NOT TO BE RELEASED WITHOUT AUTHORIZATION [facility] [address] [place] [id number] Signed Copies: ~ PATIENT NAME: BARBY MATTA PATHOLOGY DATE OF : 63 REPORT #: [id number] PHYSICIAN: INC[facility] PATH[facility] PCP: LENNY ROBLES MD REPORT IS CONFIDENTIAL AND NOT TO BE RELEASED WITHOUT AUTHORIZATION
== END 2020-11-20 03:10 | disposition short-term general hospital (02) | DRG 330 ==
LOC: DSVR 11-10 09:00 → MS 11-10 09:00 → CCU 11-19 12:06
PROVIDERS: ADMIT Colon & Rectal Surgery; ATTEND Colon & Rectal Surgery
PROC: 3E0T3BZ Introduction of Anesthetic Agent into Peripheral Nerves and Plexi, Percutaneous Approach (ICD-10-PCS; 2020-11-10)
PROC: 3E0T33Z Introduction of Anti-inflammatory into Peripheral Nerves and Plexi, Percutaneous Approach (ICD-10-PCS; 2020-11-10)
PROC: 0DTF0ZZ Resection of Right Large Intestine, Open Approach (ICD-10-PCS; principal; 2020-11-10 09:15)
PROC: 0DBL0ZZ Excision of Transverse Colon, Open Approach (ICD-10-PCS; 2020-11-18)
PROC: 02HV33Z Insertion of Infusion Device into Superior Vena Cava, Percutaneous Approach (ICD-10-PCS; 2020-11-18)
PROC: 0DB80ZZ Excision of Small Intestine, Open Approach (ICD-10-PCS; 2020-11-18 10:45)
PROC: 0W9B30Z Drainage of Left Pleural Cavity with Drainage Device, Percutaneous Approach (ICD-10-PCS; 2020-11-19)
PROC: 0BH18EZ Insertion of Endotracheal Airway into Trachea, Via Natural or Artificial Opening Endoscopic (ICD-10-PCS; 2020-11-20)
PROC: 5A1935Z Respiratory Ventilation, Less than 24 Consecutive Hours (ICD-10-PCS; 2020-11-20)
DX: K63.89 Other specified diseases of intestine (principal); J93.83 Other pneumothorax; E46 Unspecified protein-calorie malnutrition; Z20.828 Contact with and (suspected) exposure to other viral communicable diseases; K91.30 Postprocedural intestinal obstruction, unspecified as to partial versus complete; G89.18 Other acute postprocedural pain; F31.9 Bipolar disorder, unspecified; G56.91 Unspecified mononeuropathy of right upper limb; I10 Essential (primary) hypertension; E78.5 Hyperlipidemia, unspecified; N28.9 Disorder of kidney and ureter, unspecified; E83.39 Other disorders of phosphorus metabolism; Z79.899 Other long term (current) drug therapy; Z79.1 Long term (current) use of non-steroidal anti-inflammatories (NSAID)
CPT/HCPCS: 00540; 00790; 36415; 36600; 64448; 71045; 74018; 74250; 76942; 80048; 80053; 80061; 81001; 82803; 83036; 83735; 84100; 84134; 85025; 85610; 85730; 88309; 94002; C9113; J0131; J0330; J0690; J1100; J1170; J1630; J1644; J1650; J1815; J1885; J2001; J2060; J2250; J2405; J2550; J2704; J2795; J3010; J3475; J7060; J7121; U0003

== ENCOUNTER 2021-10-01 18:26 | Day surgery (SDC) | payer OTHER ==
[~2021-10-01] VITALS: Ht 182.9 cm; Wt 89.0 kg
[~2021-10-01 18:26] MED LIST changes: +FLONASE ALLERG9.9 ML NAS; +HYDROCHLOROTHIA25 MG PO
[2021-10-01] MEDS ORDERED: FLUTICASONE PRO16 GM NAS (18:48)
[2021-10-01] MEDS ORDERED: OXCARBAZEPINE300 MG PO (18:50)
[2021-10-01] MEDS ORDERED: ACETAMINOPHEN500 MG PO (23:04)
--- NOTE | 2021-10-01 23:06 | NUR ---
10/01/21 2894 Laura Murray 0931 PATIENT ARRVIES TO PACU UNRESPONSIVE TO PAIN, ORAL AIRWAY IN PLACE, ALSO REQUIRES RN TO HOLD JAW THRUST TO MAINTAIN PATENT AIRWAY. RESP EVEN AND UNLABORED, MASK AT 10L.
--- NOTE | 2021-10-01 23:38 | NUR ---
PATIENT ARRIVED IN ROOM IN HOSPITAL BED. REPORT RECEIVED FROM OKSANA MORIN RN. PATIENT ALERT AND ORIENTED AND VS STABLE. DENIES PAIN, DENIES NAUSEA, LUNGS CLEAR, BOWEL TONES ACTIVE, NO NUMBNESS OR TINGLING IN EXTREMETIES. SCD'S IN PLACE AND TURNED ON. PATIENT SHARING A LOT OF DEEPLY PERSONAL SEXUAL INFORMATION AND IS EMBARRASSED ABOUT HIS SITUATION. TRIED TO ASSURE PATIENT WE ARE JUST HERE TO GET HIM STABLE FOR DC AND NOT TO INTERNATIONAL RECRUITER. PATIENT COOPERATIVE AT THIS TIME WITH CARES. EDUCATED TO CALL LIGHT AND TV, WELL BATHROOM PRIVILAGES. CALL LIGHT IN REACH AND PATIENT HAS NO OTHER NEEDS AT THIS TIME.
--- NOTE | 2021-10-02 00:51 | NUR ---
PATIENT UP TO THE BATHROOM AND BACK TO BED 1PSBA. VOIDED AND HAD A BM. BACK IN BED. NEW ICE WATER AND NEW OJ. VS STILL STABLE. CALL LIGHT IN REACH.
--- NOTE | 2021-10-02 03:03 | NUR ---
PATIENT STILL ALERT AND ORIENTED. LAST SET OF POST-OP VITALS COMPLETE AND STILL WNL. PATIENT HAS NO CURRENT CARE NEEDS AND ASESSMENT REMAINS UNCHANGED. CALL LIGHT IN REACH.
--- NOTE | 2021-10-02 05:54 | NUR ---
PATIENT DENIES PAIN OR NAUSEA.PATIENT HAS HAD NO RECTAL BLEEDING AND IS VOIDING QS. A+O AND ANXIUOS TO GO HOME. PATIENT INDEPENDENT IN ROOM. JUST DUMPED 500MLS URINE. CALL LIGHT IN REACH AND NO OTHER CARE NEEDS AT THIS TIME.
--- NOTE | 2021-10-02 07:31 | NUR ---
PT UP AND DRESSED READY FOR DC. SL DC'D. PT DRINKING COFFEE DENIES NEEDS OR DISCOMFORTS. AGREES NOT TO DRIVE FOR 24HR CARE RIDE BEING ARRANGED.
--- NOTE | 2021-10-02 08:58 | NUR ---
PT QUITE ANXIOUS FOR DC. DC EDUCATION PROVIDED PT VERBALIZES UNDERSTANDING DENIES QUESTIONS OR CONCERNS. SL WAS DC'D CATH INTACT SITE UNREMARKABLE. PT AGREES TO MONITOR SITE AND IS ABLE TO VERBALIZE S/S OF COMPLICATION. CAB WAS CALL FOR PT, HE AGREES NOT TO DRIVE AND HAS BEEN TOLD HE CAN GET A DUI IF HE DOES.
--- NOTE | 2021-10-02 15:07 | OR ---
[facility] [address], [place] [address] Signed DATE OF OPERATION: 10/01/2021 SURGEON: Jeanne Kaur MD PREOPERATIVE DIAGNOSIS: Impacted rectal foreign body (dildo). POSTOPERATIVE DIAGNOSES: 1. Impacted rectal foreign body (dildo). 2. Minor low anterior rectal laceration. PROCEDURES: 1. Exam under anesthesia. 2. Explantation of rectal foreign body. 3. Rigid proctoscopy with irrigation. ANESTHESIA: General endotracheal, Jeanne Easton CRNA. INDICATION: This 56-year-old white man earlier in the evening inserted a rectal foreign body, which could not initially be extracted. Further attempts by the patient to do so resulted in it migrating even higher. He was evaluated in the emergency room by Dr. Perdomo, although the abnormality was noted to be within the reach of the fingertip, could not be grasped or otherwise extracted. On that basis, I have recommended exam under anesthesia and extraction of the foreign body. The patient understands the risk of bleeding, infection, need for open procedure and other unforeseen complications and wished to proceed. FINDINGS: Anorectal hemorrhoidal disease was noted. Digital examination showed the rectal foreign body to have an open cup type end likely related to an area for battery insertion. There were no batteries noted. With various manipulations, the edge of the device could be grasped with ring clamps and gently manipulated and withdrawn. There was blood noted on the foreign body device and on that basis, irrigation was undertaken and subsequently a rigid proctoscopy. This did demonstrate an anterior low rectal laceration that was small, superficial and not with ongoing bleeding. There were no other issues of concern. Electronically Signed By: JEANNE KAUR MD 10/02/21 1507 PATIENT NAME: BARBY MATTA OPERATIVE REPORT DATE OF : 63 REPORT #: [id number] PHYSICIAN: JEANNE KAUR MD PCP: NANCIE ROBLES MD REPORT IS CONFIDENTIAL AND NOT TO BE RELEASED WITHOUT AUTHORIZATION [facility] [address], [place] [address] Signed DESCRIPTION OF PROCEDURE: The patient was brought to the operating room, given a general endotracheal anesthetic. Preoperative COVID test was negative. LABORATORY DATA: Lab studies were normal. After satisfactory general endotracheal anesthesia, he was placed in the prone zoila-knife position with buttocks taped apart. There was some mucoid material in the anorectal area. The buttocks were taped apart and digital examination undertaken with lubricated gloved finger demonstrated the tip of examination to the left-- A rigid foreign body consistent with the offending dildo. It had an open central portion. A rigid plastic collar was identified and the device measured 2 inches in diameter. With various two hand manipulations, the edge of the foreign body could be grasped with a ring clamps and gently manipulated and withdrawn and removed. The foreign body was far larger than expected 8 inches in length, 2 inches in diameter consistent with "dildo." There was noted to be blood on the foreign body. Irrigation was undertaken with the assistance of a rectal retractor, although there was some blood, there was no obvious active bleeding. On that basis, a rigid proctoscopy then was undertaken with good visualization of mucosa up to 18 cm. There appeared to be a low anterior small divit-type laceration which did not extend full-thickness in any way and did not have any further ongoing bleeding. The patient was ultimately returned to the supine position, extubated and transferred to the recovery room in good condition. MD MONICA Ardon/MODL /[id number] cc: MD Nancie Perez MD Electronically Signed By: JEANNE KAUR MD 10/02/21 1507 PATIENT NAME: BARBY MATTA OPERATIVE REPORT DATE OF : 63 REPORT #: [id number] PHYSICIAN: JEANNE KAUR MD PCP: NANCIE ROBLES MD REPORT IS CONFIDENTIAL AND NOT TO BE RELEASED WITHOUT AUTHORIZATION [facility] [address] [place] [id number] Signed Copies: KYLE PERDOMO MD ~ Electronically Signed By: JEANNE KAUR MD 10/02/21 1507 PATIENT NAME: BARBY MATTA OPERATIVE REPORT DATE OF : 63 REPORT #: [id number] PHYSICIAN: JEANNE KAUR MD PCP: NANCIE ROBLES MD REPORT IS CONFIDENTIAL AND NOT TO BE RELEASED WITHOUT AUTHORIZATION
--- NOTE | 2021-10-02 15:07 | CONS ---
[facility] [address], [place] [address] Signed DATE OF CONSULTATION: 10/01/2021 CONSULTING PHYSICIAN: Jeanne Kaur MD. REQUESTING PHYSICIAN: Dr. Perdomo. PROBLEM: Non-retrievable rectal foreign body. HISTORY OF PRESENT ILLNESS: This 56-year-old white man presented to the emergency room at approximately 8 o'clock and was evaluated by Dr. Perdomo with complaints of an impacted nonremovable foreign body ("dildo" 1 inch caliber 6 inch length). He had no rectal bleeding or abdominal pain. The foreign body had been present for about an hour and each time he had attempted to withdraw it, it advanced more deeply into the rectum. Examination by Dr. Perdomo described the lesion to be palpable at the fingertip, but unable to be grasped and removed. The patient has no significant abdominal pain particularly. No shortness of breath or other systemic signs of illness. PAST MEDICAL HISTORY: Includes dyslipidemia, hypertension and bipolar disorder. CURRENT MEDICATIONS: Include fluticasone, oxcarbazepine, lisinopril, atorvastatin, meloxicam, lamotrigine, and gabapentin. SURGICAL HISTORY: Includes chest tube for pneumothorax age 26. He drinks alcohol on a daily basis. Denies any illicit drug use and smokes on a daily basis. The patient has been vaccinated for COVID disease and has not suffered a COVID infection that he knows of. The patient describes prior history about a year ago by Dr. Rodrigez, November 10 of right colectomy for a benign polyp. Procedure was performed on November 10, 2020. He suffered a small bowel obstruction and required resection and reanastomosis on November 18, 2020. A left subclavian triple-lumen catheter was placed with concurrent complication of pneumothorax requiring a chest tube. He was transferred to [facility] Electronically Signed By: JEANNE KAUR MD 10/02/21 1507 PATIENT NAME: BARBY MATTA CONSULTATION DATE OF : 63 REPORT #: [id number] PHYSICIAN: JEANNE KAUR MD PCP: LENNY ROBLES MD REPORT IS CONFIDENTIAL AND NOT TO BE RELEASED WITHOUT AUTHORIZATION [facility] [address], [place] [address] Signed Hospital for further management. He ultimately recovered. His past medical history does include hypertension and hyperlipidemia as well as bipolar disorder. SOCIAL HISTORY: He is not . He lives with his elderly father of 83 years and cares for him. He last ate approximately greater than 6 hours ago and had some liquids more than 2 hours ago. REVIEW OF SYSTEMS: He denies any shortness of breath or chest pain. Does not have severe anal pain but mild pelvic discomfort. No specific abdominal pain proper. PHYSICAL EXAMINATION: GENERAL: A relatively tall white man who does not look to be in acute distress. NECK: Trachea is midline. CHEST: Shows normal respiratory excursion. No tachypnea. ABDOMEN: Somewhat distended, but nontender. EXTREMITIES: Show no clubbing, cyanosis, or edema. RECTAL: Rectal exam was not repeated at this time. LABORATORY STUDIES: Are pending to include COVID test, metabolic profile and a CBC. ASSESSMENT: The patient is noted to have an impacted non-retrievable by the patient foreign body for which exam under anesthesia and extraction of the foreign body is recommended. Discussed with him the risk of bleeding, infection, perforation, and inability to remove per rectum requiring laparotomy and manipulation. I am hopeful and optimistic that that will not be necessary. The patient understands the potential risk to this procedure and wished to proceed. Jeanne Kaur MD JM/MODL /[id number] Electronically Signed By: JEANNE KAUR MD 10/02/21 1507 PATIENT NAME: BARBY MATTA CONSULTATION DATE OF : 63 REPORT #: [id number] PHYSICIAN: JEANNE KAUR MD PCP: LENNY ROBLES MD REPORT IS CONFIDENTIAL AND NOT TO BE RELEASED WITHOUT AUTHORIZATION [address] [address] Signed cc: MD Rupesh Perez MD Copies: KYLE PERDOMO MD, ANDREW L MD ~ Electronically Signed By: JEANNE KAUR MD 10/02/21 1507 PATIENT NAME: BARBY MATTA CONSULTATION DATE OF : 63 REPORT #: [id number] PHYSICIAN: JEANNE KAUR MD PCP: LENNY ROBLES MD REPORT IS CONFIDENTIAL AND NOT TO BE RELEASED WITHOUT AUTHORIZATION
== END 2021-10-02 08:20 | disposition home or self-care (01) ==
LOC: ED 18:26 → MS 21:15 → DS 21:15
PROVIDERS: ATTEND Surgery
PROC: 0DCP7ZZ Extirpation of Matter from Rectum, Via Natural or Artificial Opening (ICD-10-PCS; principal; 2021-10-01 22:26)
DX: T18.5XXA Foreign body in anus and rectum, initial encounter (principal); S36.63XA Laceration of rectum, initial encounter; K64.9 Unspecified hemorrhoids; E78.5 Hyperlipidemia, unspecified; I10 Essential (primary) hypertension; X58.XXXA Exposure to other specified factors, initial encounter; Z20.822 Contact with and (suspected) exposure to COVID-19
CPT/HCPCS: 80053; 85025; C9803; J0330; J1100; J1885; J2250; J2405; J2704; J2765; J3010; J7121; U0003